=== PATIENT | female | born 1955 | race Caucasian/White ===

== ENCOUNTER 2019-05-31 15:08 | Inpatient (IN) | payer MEDICARE, MEDICAID ==
[~2019-05-31] VITALS: Ht 170.2 cm; Wt 59.0 kg
[~2019-05-31 15:08] MED LIST: AMIN30LI4 PO; FENT1PAT2 TD; FOLI1TAB94 PO; HYDR12.519 PO; LISI20TA61 PO; METH2.5T14 PO; MULT1TAB11 PO; OXYC10TA PO; SOLI10TA2 PO; VITA1TAB56 PO; [UNRECOGNIZED DRUG - CODE] SQ
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
[2019-05-31 15:34] LABS: BASOPHILS # (AUTO) 0.1 /CMM (0.0-0.2); BASOPHILS % (AUTO) 0.7 % (0.0-2.0); EOSINOPHILS % (AUTO) 2.2 % (0.0-6.0); HEMATOCRIT 43 % (33-45); HEMOGLOBIN 14.4 g/dL (11.5-14.8); LYMPHOCYTES # (AUTO) 2.3 /CMM (0.8-4.8); LYMPHOCYTES % (AUTO) 29.5 % (20.0-44.0); MEAN CORPUSCULAR HGB CONC 34 g/dl (31.0-36.0); MEAN CORPUSCULAR VOLUME 91 fL (82-100); MONOCYTES # (AUTO) 0.6 /CMM (0.1-1.30); MONOCYTES % (AUTO) 8.3 % (2.0-12.0); NEUTROPHILS # (AUTO) 4.6 /CMM (1.8-8.9); NEUTROPHILS % (AUTO) 59.3 % (43.0-81.0); PLATELET COUNT (AUTO) 282 /CMM (150-450); RED BLOOD CELL COUNT(AUTO) 4.67 MIL/uL (4.0-5.2); WHITE BLOOD COUNT (AUTO) 7.8 K/uL (4.3-11.0)
[2019-05-31 15:53] LABS: ALANINE AMINOTRANSFERASE 17 U/L (12-78); ALBUMIN 3.7 g/dL (3.4-5.0); ALCOHOL, BLOOD < 3 mg/dL (0-0); ALKALINE PHOSPHATASE 88 U/L (46-116); ASPARTATE AMINOTRANSFERASE 13 U/L (15-37); BILIRUBIN,DIRECT 0.1 mg/dL (0.0-0.2); BILIRUBIN,TOTAL 0.2 mg/dL (0.2-1.0); CALCIUM, SERUM 9.1 mg/dL (8.5-10.1); CARBON DIOXIDE 28 mmol/L (21-32); CHLORIDE 104 mmol/L (98-107); CREATININE 0.6 mg/dL (0.6-1.3); GLUCOSE 91 mg/dL (74-106); POTASSIUM 3.5 mmol/L (3.5-5.1); SALICYLATE 2.9 mg/dL (2.8-20.0); SODIUM SERUM 138 mmol/L (136-145); UREA NITROGEN, BLOOD 11 mg/dL (7-18)
[2019-05-31 15:54] LABS: ACETAMINOPHEN < 5 ug/ml (10-30)
[2019-05-31 16:04] LABS: APPEARANCE,URINE Clear (CLEAR); BILIRUBIN,URINE Negative (NEGATIVE); BLOOD, URINE Trace-intact Ery/uL (NEGATIVE); COLOR,URINE Yellow (YELLOW); KETONES,URINE Trace (NEGATIVE); LEUKOCYTE ESTERASE ,URINE Small (NEGATIVE); NITRITE, URINE Negative (NEGATIVE); PROTEIN,URINE Negative (NEGATIVE); UGLUCOSE Negative (NEGATIVE)
--- NOTE | 2019-05-31 16:23 | NUR ---
CALLED [facility] ASKED MARILU TO FAX A COPY OF MEDICATION RECORDS TO ER.
--- NOTE | 2019-05-31 16:32 | NUR ---
ROOM ASSIGN 211-A
--- NOTE | 2019-05-31 17:01 | NUR ---
REPORT GIVEN TO MONTEZ MELENDEZ.
[2019-05-31 17:28] LABS: BACTERIA,URINE Few /HPF (None Seen); MUCUS,URINE Moderate /LPF (None Seen); RBC,URINE 2-3/HPF /HPF (0-2); SQUAMOUS EPITHELIAL CELL,UR Moderate /HPF (None Seen); URINE AMORPHOUS URATE Few /HPF (None Seen)
[2019-05-31] MEDS ORDERED: NITROFURANTOIN/NITROFURAN MAC 100 MG CAPSULE PO STA (17:34)
[2019-05-31] MEDS ORDERED: NITROFURANTOIN/NITROFURAN MAC 100 MG CAPSULE ONE (17:37)
--- NOTE | 2019-05-31 17:56 | NUR ---
PATIENT TRANSFERRED TO ROOM 211-A, IN STABLE CONDITION. PATIENT TOOK MACROBID PO. AND TOLERATED WELL. ASKED [facility] TO FAX MED LIST, STILL HAVEN'T RECEIVED THE MED LIST. ENDORSED TO RANDI MELENDEZ.
[2019-05-31] MEDS ORDERED: BLOOD SUGAR DIAGNOSTIC 1 EACH STRIP IN ONE (18:00)
[2019-05-31] MEDS ORDERED: MAG HYDROX/AL HYDROX/SIMETH 30 ML UDC PO PRN (18:00)
[2019-05-31] MEDS ORDERED: MAGNESIUM HYDROXIDE 30 ML UDC PO PRN (18:00)
--- NOTE | 2019-05-31 18:00 | NUR ---
INVESTMENT BANKER NOTE: PATIENT ARRIVED TO [facility] GPS FROM ER VIA WHEELCHAIR WITH ER STAFF. PATIENT CAME FROM [facility] WITH DIAGNOSIS OF SCHIZOPHRENIA, MEDICAL HISTORY OF HYPERTENSION, PELVIC FRACTURE, AND R ANKLE FRACTURE. PATIENT ON A 5150 HOLD FOR DTO. UPON FACE TO FACE PATIENT REFUSED TO SIGN ADMISSION PAPERWORK, REFUSED TO HAVE PICTURE TAKEN AND REFUSED SKIN ASSESSMENT. PATIENT IS ALERT AND ORIENTED x1-2. NO ACUTE DISTRESS NOTED. VS TAKEN BP 147/97, P70 R18 02 SAT 100% DENIES ANY PAIN OR DISCOMFORT. DR. MOREL MADE AWARE OF ADMISSION. CONTRABAND TAKEN AND PUT IN LOCKER. WILL ENDORSSE TO NEXT SHIFT FOR COMPLETION OF ADMISSION. Addendum: 05/31/19 at 1852 by ROBERT COPE RN INVESTMENT BANKER NOTE: PATIENT REFUSED BLOOD SUGAR CHECK UPON DISCHARGE. PATIENT STATES "NO, I DON'T WANT IT!"
--- NOTE | 2019-05-31 18:13 | NUR ---
DR. MOREL MADE OF THE ADMISSION AND WITH ORDERS.
[2019-05-31 18:30] VITALS: BP 147/97
[2019-05-31 19:57] VITALS: BP 128/71
--- NOTE | 2019-05-31 21:00 | NUR ---
GPS RN NOTES: SPOKE WITH ONDINA FROM [facility]. PER ONDINA, [facility] IS A [facility] AND PATIENT HAS THE OPTION TO BE GIVEN MEDS THROUGH THEIR STAFF OR THEY TAKE MEDICATIONS ON THEIR OWN. WHILE PATIENT STAYED AT [facility] SHE OPTED TO TAKE THE MEDICATIONS INDEPENDENTLY WITHOUT THE STAFF'S HELP. SHE FURTHER SUGGESTED THAT WE INTERVIEW THE PATIENT FOR SHE KNOWS WHO HER DOCTOR IS AND WHAT SHE IS TAKING. THE PATIENT AT THIS TIME APPEARED TO BE EASILY AGITATED AND SCREAMS AT STAFF WHEN BEING INTERVIEW. ONDINA ALSO SUGGESTED TO CALL MARILU OR NAOMY AROUND 10 AM THE NEXT DAY FOR FURTHER INFORMATION.
[2019-06-01] MEDS: LORAZEPAM 0.5 MG TABLET PO PRN (03:36)
--- NOTE | 2019-06-01 03:37 | NUR ---
GPS-RN PATIENT IS REQUESTING FOR ATIVAN, AFTER OPENING ATIVAN PRN MED PT. REFUSED STATING IN A LOUD VOICE NO, "I DON'T NEED, IT". DESPITE OF EXPLANATION THE IMPORTANCE PT. STILL REFUSED.
[2019-06-01] MEDS ORDERED: TEMA15CA PO (08:55)
[2019-06-01] MEDS ORDERED: HALO5TAB PO (08:55)
[2019-06-01] MEDS ORDERED: CLON0.5T12 PO (08:55)
[2019-06-01] MEDS ORDERED: BENZ1TAB7 PO (08:55)
[2019-06-01] MEDS: CEPHALEXIN MONOHYDRATE 500 MG CAPSULE PO SCH ×2 (09:00→20:03)
--- NOTE | 2019-06-01 12:07 | NUR ---
Pt. is highly agitated, screaming, yelling, intrusive and with an angry mood. Refused for ativan po and not following direstion. Notified and ordered Zyprexa 5 mg IM and Ativan 1 mg IM.
[2019-06-01] MEDS ORDERED: LORAZEPAM INJ 2 MG/ML VIAL IM ONE (12:30)
[2019-06-01] MEDS ORDERED: OLANZAPINE 10 MG VIAL IM ONE (12:30)
--- NOTE | 2019-06-01 14:12 | NUR ---
NEERAJ contacted Jonelle nurse at [facility] Address: [address] [place] [id number] who stated she was not sure if pt will be accepted back and requested SW speak to the oracle database administrator Brinda [phone]. NEERAJ contacted Brinda and left a voicemail for callback.
--- NOTE | 2019-06-01 14:14 | NUR ---
SW contacted pts Public Guardian Chente Bradleyjhony [phone] and left a voicemail for callback.
--- NOTE | 2019-06-01 14:38 | NUR ---
INITIAL DISCHARGE PLAN: NEERAJ contacted nurse Jonelle at [facility] Address: [address] [place] [address] who stated she was not sure if pt will be accepted back and requested NEERAJ speak to the customer service administrator Brinda [phone]. NEERAJ contacted Brinda and left a voicemail for callback. Pt may need SNF placement. NEERAJ will help form a safe and proper discharge in collaboration with .
--- NOTE | 2019-06-01 15:00 | NUR ---
GROUP NOTE: SW encouraged pt to attend group discussing "discharge planning." Pt received IM on this present day due to aggressive behavior and was asleep. Pt not appropriate for group at this time.
[2019-06-01] MEDS: BENZTROPINE MESYLATE (1 MG) 1 MG TABLET PO SCH (16:36)
[2019-06-01] MEDS: DIVALPROEX SODIUM 250 MG TABLET.DR PO SCH (16:37)
--- NOTE | 2019-06-01 16:37 | NUR ---
RN NOTE: PATIENT REFUSED 1700 MEDICATIONS x3. RISK AND BENEFITS EXPLAINED. PATIENT SHOUTS "I DON'T TAKE ANY MEDICATION!"
[2019-06-01] MEDS ORDERED: HALOPERIDOL 5 MG TABLET PO SCH (17:00)
[2019-06-02] MEDS: TRIFLUOPERAZINE HCL 1 MG TABLET PO SCH (09:00)
[2019-06-02] MEDS: DIVALPROEX SODIUM 250 MG TABLET.DR PO SCH ×3 (09:00→17:00)
[2019-06-02] MEDS: CEPHALEXIN MONOHYDRATE 500 MG CAPSULE PO SCH ×2 (09:00→20:51)
[2019-06-02] MEDS: BENZTROPINE MESYLATE (1 MG) 1 MG TABLET PO SCH ×2 (09:00→17:00)
--- NOTE | 2019-06-02 09:09 | NUR ---
SW contacted [facility] Address: [address] [place] [address] and spoke with Whit, traffic safety administrator players assistant who stated that pts Public Guardian called her and stated that pt was not happy at that facility and that she was going to find another arrangement for her.
--- NOTE | 2019-06-02 09:19 | NUR ---
NEERAJ contacted [facility] Public Guardians [employer] and spoke to [place] Worker for [address] Crystal [phone] and requested Detain and Treat. Per Janet she will be faxing Detain and Treat to NEERAJ on this present day.
--- NOTE | 2019-06-02 09:28 | NUR ---
GPS NOTE PATIENT REFUSED MORNING VITAL SIGNS. PATIENT REFUSED 0900 MEDICATIONS OF CONGENTIN 1 MG, DEPAKOTE 250 MG, KEFLEX 500 MG, AND STELAZINE 2MG. EDUCATED PATIENT OF RISKS VS BENEFITS OF MEDICATION AND IMPORTANCE. PATIENT RAISED VOICE AND YELLED " IM NOT TAKING THOSE MEDICATIONS". WILL CONTINUE TO MONITOR.
[2019-06-02] MEDS ORDERED: diphenhydrAMINE HCL 50 MG/ML VIAL IM ONE (11:30)
[2019-06-02] MEDS ORDERED: HALOPERIDOL LACTATE INJ 5 MG/ML VIAL IM ONE (11:30)
[2019-06-02] MEDS ORDERED: LORAZEPAM INJ 2 MG/ML VIAL IM ONE (11:30)
--- NOTE | 2019-06-02 11:34 | NUR ---
GPS/RN PT IS YELLING, NOT REDIRECTABLE, THREATENS STAFF MEMBERS USING THE PROFANE LANGUAGE. ORDERS FROM DR MOREL RECEIVED AND CARRIED OUT
--- NOTE | 2019-06-02 11:53 | NUR ---
GPS RN NOTE PATIENT PACING BERMUDEZ, YELLING " FUCK YOU GUYS" TO THE STAFF, PATIENT BANGING ON NURSING STATION DOOR, AND VERBALLY ABUSIVE AT STAFF. CHARGE NURSE GIOVANNA, SPOKE WITH DR. MOREL. ORDERS FOR ATIVAN IM, BENADRYL IM, AND HALDOL LACTATE IM ONE TIME. ADMINISTERED MEDICATIONS AT 1152. WILL CONTINUE TO MONITOR.
--- NOTE | 2019-06-02 12:42 | NUR ---
GROUP NOTE: SW encouraged pt to attend group discussing "issues with current hospitalization." Pt with unpredictable behavior and easily agitated. Pt is unable to participate in group at this time due to lability and aggressive verbal behavior.
--- NOTE | 2019-06-02 13:12 | NUR ---
GPS RN NOTE PATIENT REFUSED DEPAKOTE AT 1300. EXPLAINED RISKS VS BENEFITS AND IMPORTANCE OF MEDICATION 3X, PATIENT CONTINUED TO REFUSE. WILL CONTINUE TO MONITOR.
[2019-06-02 16:00] VITALS: BP 117/65
[2019-06-02] MEDS: HALOPERIDOL 5 MG TABLET PO SCH (17:00)
--- NOTE | 2019-06-02 17:29 | NUR ---
GPS RN NOTE PATIENT REFUSED PM MEDICATIONS FOR 1700 CONGENTIN, DEPAKOTE, HALDOL. EXPLAINED RISKS VS BENEFITS. PATIENT RAISED VOICE AND YELLED " I DONT WANT THIS, STOP TRYING TO GIVE ME THIS MEDICATION, STOP IT. IM NOT TAKING ANY OF THAT SHIT". EXPLAINED IMPORTANCE OF MEDICATION, PATIENT CONTINUED TO REFUSE.
--- NOTE | 2019-06-02 19:18 | NUR ---
UP AMBULATING AROUND THE UNIT, STEADY GAIT. CALM AND QUIET. NO AGITATION NOTED.
--- NOTE | 2019-06-02 20:51 | NUR ---
Offered her cephalexin 500 mg cap due for 2100 tonight and still refusing.
--- NOTE | 2019-06-02 21:26 | NUR ---
Yelling at the nurse's station, requesting for diet coke and tea.
[2019-06-03] MEDS: DIVALPROEX SODIUM 250 MG TABLET.DR PO SCH ×3 (09:00→17:00)
[2019-06-03] MEDS: HALOPERIDOL 5 MG TABLET PO SCH ×2 (09:00→17:00)
[2019-06-03] MEDS: CEPHALEXIN MONOHYDRATE 500 MG CAPSULE PO SCH ×2 (09:00→20:35)
[2019-06-03] MEDS: BENZTROPINE MESYLATE (1 MG) 1 MG TABLET PO SCH ×2 (09:00→17:00)
--- NOTE | 2019-06-03 09:25 | NUR ---
RN NOTE: PT REFUSED ALL 0900 MEDICATIONS. EXPLAINED IMPORTANCE. CONTINUED TO REFUSE MULTIPLE TIMES.
[2019-06-03] MEDS: HALOPERIDOL LACTATE INJ 5 MG/ML VIAL IM PRN ×2 (10:04→17:35)
--- NOTE | 2019-06-03 10:10 | NUR ---
NORA NOTE: KENNY SANCHEZ GIVEN. Addendum: 06/03/19 at 1222 by JUHI BERNAL RN PATIENT REFUSED 1300 DEPMEJIA
[2019-06-03 16:00] VITALS: BP 124/71
--- NOTE | 2019-06-03 17:36 | NUR ---
RN NOTE: PT REFUSED 1700 PO MEDS. HALDOL 5M IM GIVEN IN LEFT DELTOID.
--- NOTE | 2019-06-03 20:35 | NUR ---
RN NOTES PATIENT REFUSED KEFLEX 500MG PO. EXPLAINED THE BENEFITS AND RISKS BUT PATIENT STILL REFUSED AND SCREAMED," WHY DO KEEP LETTING ME TAKE THE ANTIBIOTIC. I DON'T WANT IT. I'VE BEEN TELLING PEOPLE THAT." RETURNED ANTIBIOTIC TO [facility]
[2019-06-04] MEDS: HALOPERIDOL LACTATE INJ 5 MG/ML VIAL IM PRN ×2 (08:21→17:41)
[2019-06-04] MEDS: BENZTROPINE MESYLATE (1 MG) 1 MG TABLET PO SCH ×2 (08:23→17:00)
[2019-06-04] MEDS: HALOPERIDOL 5 MG TABLET PO SCH ×2 (08:24→17:00)
[2019-06-04] MEDS: CEPHALEXIN MONOHYDRATE 500 MG CAPSULE PO SCH ×2 (08:24→20:10)
[2019-06-04] MEDS: DIVALPROEX SODIUM 250 MG TABLET.DR PO SCH ×3 (08:24→17:00)
--- NOTE | 2019-06-04 08:25 | NUR ---
PATIENT REFUSED KEFLEX 500MG PO AND ALL PO AM MEDS. EXPLAINED THE BENEFITS AND RISKS BUT PATIENT STILL REFUSED. PRN HALDOL IM ADMINISTRATED DIRECTED
--- NOTE | 2019-06-04 17:39 | NUR ---
PATIENT REFUSED ALL 1700 MEDS, INCLUDING G HALDOL. EXPLAINED THE BENEFITS AND RISKS BUT PATIENT STILL REFUSED. PRN HALDOL IM ADMINISTRATED DIRECTED
[2019-06-04 19:51] VITALS: BP 149/74
[2019-06-04 19:56] VITALS: BP 149/74
--- NOTE | 2019-06-04 20:00 | NUR ---
RN NOTES: pt in the room, refusing medications, received haldol IM during day shift. pt isolate herself in the room, easily gets agitated when ask questions. unpredictable, with reports of aggressive behavior. pt is a/o x2, on ra respirations even and unlabored, denies any pain at this time. denies any si/hi. agrees for vs to be taken.refused skin assessment. safety precautions for fall initiated, side rails up x2 for pt's safety. will continue monitoring pt [id number] for safety and any changes in behavior.
[2019-06-05 08:00] VITALS: BP 142/70
[2019-06-05] MEDS: HALOPERIDOL 5 MG TABLET PO SCH ×2 (08:02→16:07)
[2019-06-05] MEDS: CEPHALEXIN MONOHYDRATE 500 MG CAPSULE PO SCH ×2 (08:02→20:16)
[2019-06-05] MEDS: BENZTROPINE MESYLATE (1 MG) 1 MG TABLET PO SCH ×2 (08:03→16:07)
[2019-06-05] MEDS: DIVALPROEX SODIUM 250 MG TABLET.DR PO SCH ×2 (08:03→12:12)
--- NOTE | 2019-06-05 10:10 | NUR ---
SW contacted pts Public Guardian Chente Bradelyjhony [phone] and left a voicemail for callback.
--- NOTE | 2019-06-05 11:00 | NUR ---
PUBLIC GUARDIAN: NEERAJ received a call from Public Guardian Chente Bradley [phone] who stated pt is unable to return to [facility] as pt does not wish to return and the facility does not want to take her back. Public Guardian stated that if psychiatrist is recommending locked SNF then SW is able to refer pt and requested SW fill out a request for approval placement/ transfer of conservatee form before pt is discharged. NEERAJ received form via fax.
--- NOTE | 2019-06-05 11:36 | NUR ---
NEERAJ FAXED SNF REFERRAL to Ryan high school admissions representative at [facility] Address: [address], [place] [address] for review.
--- NOTE | 2019-06-05 12:39 | NUR ---
RN NOTE: PT REFUSED DEPAKOTE PO.
--- NOTE | 2019-06-05 13:38 | NUR ---
SW received a call from Ryan, dental scheduling coordinator at [facility] Address: [address], [place] [address] stating pt has been accepted to the facility.
--- NOTE | 2019-06-05 14:15 | NUR ---
INDIVIDUAL COUNSELING: SW spoke with pt regarding her discharge plan to a group home facility. Pt refused and stated she was not going to go to a SNF. SW explained that pt was conserved and her discharge was up to her public guardian and also informed her that due to her not being compliant with medication and treatment she could not live in a board and care or independent living and needed to be in a SNF to be able to receive the care she needs. Pt understood and asked when she will be discharged and to what SNF. SW informed her that her discharge will be decided by her psychiatrist and that she has been accepted to [facility].
[2019-06-05] MEDS ORDERED: HALOPERIDOL DECANOATE IM 100 MG/ML AMPUL IM ONE (16:00)
--- NOTE | 2019-06-05 19:35 | NUR ---
CONTACTED RX X3 DUE TO HALDOL LONG ACTING NOT AVAILABLE IN OMNICELL. HALDOL ARRIVED LATE. FOLLOWING RN WILL ADMINISTER
[2019-06-05 19:43] VITALS: BP 147/88
[2019-06-05] MEDS: TEMAZEPAM 7.5 MG CAPSULE PO PRN (21:26)
--- NOTE | 2019-06-05 21:30 | NUR ---
RN NOTES: PT REQUESTING FOR SLEEPING AID. PT WAS ADMINISTERED RESTORIL 7.5MG PO. WILL CONTINUE TO MONITOR.
--- NOTE | 2019-06-05 22:23 | NUR ---
NORA NOTES: PT COMPLIANT WITH HALDOL IM 100MG SHOT AND WAS ADMINISTERED ON L BUTTOCKS. Addendum: 06/05/19 at 2301 by MIKAELA MOORE RN buttock*
[2019-06-05] MEDS: LORAZEPAM 0.5 MG TABLET PO PRN (23:23)
[2019-06-06] MEDS: ACETAMINOPHEN 325 MG TABLET PO PRN ×3 (03:49→22:05)
--- NOTE | 2019-06-06 03:51 | NUR ---
RN NOTES: PT COMPLAINING OF TOOTHACHE AND CANNOT SLEEP. PT WAS ADMINISTERED TYLENOL 650MG PO. WILL CONTINUE TO MONITOR.
[2019-06-06 08:00] VITALS: BP 161/71
--- NOTE | 2019-06-06 08:37 | NUR ---
NEERAJ FAXED request for approval placement/ transfer of conservatee form to Public Guardian Chente Bradley [phone] .
[2019-06-06] MEDS: CEPHALEXIN MONOHYDRATE 500 MG CAPSULE PO SCH ×2 (08:53→21:00)
[2019-06-06] MEDS: BENZTROPINE MESYLATE (1 MG) 1 MG TABLET PO SCH ×2 (08:53→16:28)
[2019-06-06] MEDS: clonazePAM 0.5 MG TABLET PO PRN ×3 (08:53→19:24)
[2019-06-06] MEDS: HALOPERIDOL 5 MG TABLET PO SCH ×2 (08:53→16:28)
--- NOTE | 2019-06-06 08:55 | NUR ---
RN NOTE: PATIENT ANXIOUS, PRN KLONOPIN GIVEN.
--- NOTE | 2019-06-06 09:55 | NUR ---
RN NOTE: PATIENT CURSED AT DR FREDERICK. SPOKE TO PATIENT AND PATIENT CALMED DOWN. INFORMED DR MOREL WITH NNO. WILL CONTINUE TO MONITOR PATIENT PER GPS PROTOCOL.
--- NOTE | 2019-06-06 10:06 | NUR ---
RN NOTE: INFORMED DR COWART ABOUT PATIENT'S ELEVATED BP. PATIENT HAS NO MEDS FOR HTN. HYDRALAZINE 20MG QD ORDERED.
[2019-06-06] MEDS: LISINOPRIL (20MG) 20 MG TABLET PO SCH (10:50)
--- NOTE | 2019-06-06 11:09 | NUR ---
INDIVIDUAL MEETING: SW met with pt on this present day to discuss her discharge plan. SW informed her that she will be discharged on 06/08/19 to [facility]. Pt became agitated and began yelling stating she was not going to be discharged to a SNF and that she wanted to return to the [facility]. SW explained that she could not return due to her behavior and pt began yelling and became verbally aggressive stating that the facility lied and that she has never had any behavior issues. SW then explained that due to her being LPS conserved her Public Guardian has already agreed with placement that psychiatrist has recommended. Pt was unable to calm down and refused placement stating that she was not going to go and that she rather be homeless. SW attempted to provide crisis intervention but pt was uncooperative and verbally aggressive in tone. Pt then stated that SW could have her "blood money and shove it up her ass."
--- NOTE | 2019-06-06 11:52 | NUR ---
NORA NOTE: PATIENT COMPLAINING OF PAIN ON HER TOOTH. PRN TYLENOL GIVEN. WILL RE-ASSESS PAIN LEVELS. Addendum: 06/06/19 at 1210 by JUHI BERNAL RN PATIENT STATED SHE HAS RIGHT UPPER TOOTH PAIN ALONG WITH PAIN TO HER RIGHT EAR. VS TAKEN. WILL CONTACT DR COWART FOR FURTHER ORDERS. Addendum: 06/06/19 at 1223 by JUHI BERNAL RN CONTACTED DR. COWART, AWAITING CALL BACK
[2019-06-06 12:11] VITALS: BP 144/82
--- NOTE | 2019-06-06 15:16 | NUR ---
Group Note: SW encouraged pt to attend group on 06/06/19 at 1pm discussing discharge planning. Pt refused to attend and stated that she has been trying to talk to her SW all day and knows that she is leaving on . Pt stated that she does not want to be placed in a locked facility and that she will just leave if she is sent to one. SW stated that the placement is necessary for further stabilization and that she should speak to her SW and MD regarding the reasoning behind this placement. Pt was not appropriate for group therapy due to unpredictable behavior and due to being easily agitated.
--- NOTE | 2019-06-06 15:23 | NUR ---
RN NOTE: PATIENT C/O ANXIETY. PRN ATIVAN GIVEN
--- NOTE | 2019-06-06 15:30 | NUR ---
PUBLIC GUARDIAN: SW received a call from Public Guardian Chente Bradley [phone] stating that she has received the Request for Approval of Placement Transfer of Consertavee Form and has approved it. SW received faxed copied and placed it in pts chart.
[2019-06-06 15:51] VITALS: BP 123/67
[2019-06-06] MEDS: IBUPROFEN 400 MG TABLET PO PRN (16:29)
--- NOTE | 2019-06-06 16:30 | NUR ---
RN NOTE: PATIENT HAS PAIN IN RIGHT TOOTH. PRN IBUPROFEN GIVEN.
--- NOTE | 2019-06-06 19:00 | NUR ---
RN NOTE RECEIVED PT IN STABLE CONDITION A/O X2 CURRENTLY STANDING IN DOORWAY. NO S/S OF DISTRESS, NO C/O PAIN OR N/V. NO SIGNS OF SI OR HI. ALL CURRENT NEEDS ATTENDED TO. WILL CONT. TO MONITOR PT'S BEHAVIOR CLOSELY.
[2019-06-06] MEDS: TEMAZEPAM 7.5 MG CAPSULE PO PRN (20:59)
--- NOTE | 2019-06-06 22:05 | NUR ---
RN NOTE PRN TYLENOL 650 MG TAB GIVEN PO FOR PT C/O TOOTH PAIN 10/09, WILL CONT. TO MONITOR.
[2019-06-07] MEDS: IBUPROFEN 400 MG TABLET PO PRN ×2 (02:01→10:16)
--- NOTE | 2019-06-07 02:01 | NUR ---
RN NOTE PRN IBUPROFEN 400 MG PO TAB GIVEN FOR PT C/O OF TOOTHACHE PAIN 10/09, WILL CONT. TO MONITOR.
[2019-06-07] MEDS: CEPHALEXIN MONOHYDRATE 500 MG CAPSULE PO SCH (08:09)
[2019-06-07] MEDS: BENZTROPINE MESYLATE (1 MG) 1 MG TABLET PO SCH (08:09)
[2019-06-07] MEDS: ACETAMINOPHEN 325 MG TABLET PO PRN (08:09)
[2019-06-07] MEDS: HALOPERIDOL 5 MG TABLET PO SCH (08:09)
[2019-06-07] MEDS: LISINOPRIL (20MG) 20 MG TABLET PO SCH (08:14)
[2019-06-07 08:18] VITALS: BP 145/84
--- NOTE | 2019-06-07 09:06 | NUR ---
INDIVIDUAL MEETING: SW met with pt on this present day to discuss pts discharge plan, pt continues to refuse locked SNF placement and has poor insight into her mental illness. Pt agreed to discharge to a non-locked SNF in [facility] and stated that she will discharge willingly.
[2019-06-07] MEDS: clonazePAM 0.5 MG TABLET PO PRN (09:13)
--- NOTE | 2019-06-07 09:13 | NUR ---
NEERAJ FAXED SNF REFERRAL to Raad improvement coordinator at [facility] Address: [address] [place] [address] for review.
--- NOTE | 2019-06-07 09:17 | NUR ---
PUBLIC GUARDIAN: NEERAJ contacted Public Guardian Chente Grewalrachelle [phone] and left a voicemail informing her pt continues to refuse being discharged to a locked SNF and agreed to be discharged to a non-locked SNF in [place]. NEERAJ informed her that a referral has been sent an is awaiting approval for discharge. NEERAJ stated that she would update transfer of convervatee form once placement and discharge have been confirmed.
--- NOTE | 2019-06-07 10:31 | NUR ---
PUBLIC GUARDIAN: SW received a call from Public Guardian Chente Bradley [phone] who verbally approved SNF transfer to [facility]. SW stated that she is waiting for confirmation from SNF that pt has been accepted.
--- NOTE | 2019-06-07 10:55 | NUR ---
PUBLIC GUARDIAN NEERAJ FAXED request for approval placement/ transfer of conservatee form to Public Guardian Chente Bradley [phone] .
--- NOTE | 2019-06-07 11:00 | NUR ---
INDIVIDUAL MEETING: NEERAJ contacted Jonelle, nurse at [facility] Address: [address] [place] [phone] who spoke with pt to inform her she cannot return the the facility due to her aggressive behavior.
--- NOTE | 2019-06-07 11:02 | NUR ---
SNF REFERRAL: NEERAJ received a call from Raad field service coordinator at [facility] Address: [address] [place] [address] stating pt has been accepted to the facility. NEERAJ informed him pt will be discharged on this present day.
--- NOTE | 2019-06-07 11:04 | NUR ---
PUBLIC GUARDIAN: NEERAJ received approval for placement/ transfer of conservatee form via fax from Public Guardian Chente Bradley [phone]. SW placed form in pts chart.
--- NOTE | 2019-06-07 11:06 | NUR ---
DISCHARGE NOTE: Pt will be discharging at 3:30pm via [facility] to [facility] ([facility] [address] [facility] [address] . Public Guardian Chente Bradley [phone] has been notified and agrees with discharge plan. Pts mood is anxious and paranoid with congruent affect. Pt denied visual/auditory hallucinations and denied suicidal/homicidal ideation. Pt will be under the care of Psychiatrist: Dr. Nella Newton [address] [id number] [phone] and Revenue Inspector: Dr. Ayan Najera [address] [id number] . The multidisciplinary exit care form was done, printed, signed, and given to the patient.
--- NOTE | 2019-06-07 11:33 | NUR ---
Handoff to Nurse, NORA Sherman, with [facility]. Merlin Toussaint RN
--- NOTE | 2019-06-07 13:47 | NUR ---
Patient sent to [facility] with assistance of EMT crew. Patient took all belongings. Patient ambulates independently without assistance. Patient thankful to staff for her care. Merlin Toussaint RN
== END 2019-06-07 13:45 | DRG 885 ==
LOC: ER 15:16 → GPS 16:50
PROVIDERS: ADMIT Psychiatry & Neurology Psychiatry; ATTEND Nurse Practitioner Acute Care
DX: F20.0 Paranoid schizophrenia (principal); N39.0 Urinary tract infection, site not specified; E78.5 Hyperlipidemia, unspecified; I10 Essential (primary) hypertension; F32.9 Major depressive disorder, single episode, unspecified; G47.00 Insomnia, unspecified; F29 Unspecified psychosis not due to a substance or known physiological condition; B96.89 Other specified bacterial agents as the cause of diseases classified elsewhere
CPT/HCPCS: 36415; 80048-TC; 80076-TC; 80305; 81000-TC; 85025-TC; 87081-TC; 87086-TC; G0480; J1200; J1630; J1631; J2060; J3490

== ENCOUNTER 2022-06-30 15:02 | Inpatient (IN) | payer MEDICARE, OTHER ==
[~2022-06-30] VITALS: Ht 165.1 cm; Wt 72.6 kg
[~2022-06-30 15:02] MED LIST changes: -AMIN30LI4 PO; +BENZ1TAB7 PO; +CLON0.5T4 PO; -FENT1PAT2 TD; -FOLI1TAB94 PO; +HALO5TAB PO; -HYDR12.519 PO; -LISI20TA61 PO; -METH2.5T14 PO; -MULT1TAB11 PO; -OXYC10TA PO; -SOLI10TA2 PO; +TEMA15CA PO; -VITA1TAB56 PO; -[UNRECOGNIZED DRUG - CODE] SQ
--- NOTE | 2022-06-30 15:05 | NUR ---
ON 5150 HOLD FOR DANGER TO OTHERS, PATIENT HAS BEEN REPORTED TO BE BELLIGERENT AND THREATENING TO HURT OTHER PEOPLE.
--- NOTE | 2022-06-30 15:08 | NUR ---
DR RAAUJO AT BEDSIDE
[2022-06-30] MEDS ORDERED: HALOPERIDOL LACTATE INJ 5 MG/ML VIAL ONE (15:40)
[2022-06-30] MEDS ORDERED: diphenhydrAMINE HCL 50 MG/ML VIAL ONE (15:40)
[2022-06-30] MEDS ORDERED: LORAZEPAM INJ 2 MG/ML VIAL ONE (15:40)
--- NOTE | 2022-06-30 15:55 | NUR ---
RAPID COVID SWAB DONE AND SENT TO LAB
[2022-06-30] MEDS ORDERED: HALOPERIDOL LACTATE INJ 5 MG/ML VIAL IM ONE (16:00)
[2022-06-30] MEDS ORDERED: LORAZEPAM INJ 2 MG/ML VIAL IM ONE (16:00)
[2022-06-30] MEDS ORDERED: diphenhydrAMINE HCL 50 MG/ML VIAL IM ONE (16:00)
--- NOTE | 2022-06-30 16:00 | NUR ---
URINE SAMPLE COLLECTED AND SENT TO LAB
--- NOTE | 2022-06-30 16:02 | NUR ---
MOVE SHEET SUBMITTED.
[2022-06-30 16:26] LABS: BASOPHILS % (AUTO) 0.1 % (0.0-2.0); EOSINOPHILS % (AUTO) 2.7 % (0.0-6.0); HEMATOCRIT 41 % (33-45); HEMOGLOBIN 13.6 g/dL (11.5-14.8); LYMPHOCYTES # (AUTO) 3.3 K/uL (0.8-4.8); LYMPHOCYTES % (AUTO) 25.9 % (20.0-44.0); MEAN CORPUSCULAR HGB CONC 34 g/dl (31.0-36.0); MEAN CORPUSCULAR VOLUME 86 fL (82-100); MONOCYTES % (AUTO) 7.6 % (2.0-12.0); NEUTROPHILS # (AUTO) 8.1 K/uL (1.8-8.9); NEUTROPHILS % (AUTO) 63.7 % (43.0-81.0); PLATELET COUNT (AUTO) 292 K/uL (150-450); RED BLOOD CELL COUNT(AUTO) 4.73 MIL/uL (4.0-5.2); WHITE BLOOD COUNT (AUTO) 12.7 K/uL (4.3-11.0)
[2022-06-30 16:29] LABS: BILIRUBIN,URINE NEGATIVE (NEGATIVE); COLOR,URINE YELLOW (YELLOW); LEUKOCYTE ESTERASE ,URINE NEGATIVE (NEGATIVE); NITRITE, URINE NEGATIVE (NEGATIVE); PROTEIN,URINE NEGATIVE (NEGATIVE); UGLUCOSE NEGATIVE (NEGATIVE); UROBILINOGEN,URINE 0.2 EU/dL (0.2)
[2022-06-30 16:37] LABS: CALCIUM, SERUM 9.2 mg/dL (8.5-10.1); CARBON DIOXIDE 27 mmol/L (21-32); CHLORIDE 102 mmol/L (98-107); CREATININE 0.6 mg/dL (0.6-1.3); GLUCOSE 92 mg/dL (74-106); SODIUM SERUM 137 mmol/L (136-145); UREA NITROGEN, BLOOD 16 mg/dL (7-18)
[2022-06-30 16:40] LABS: WBC,URINE 0-2 /HPF (0-3)
[2022-06-30 16:41] LABS: BACTERIA,URINE None seen /HPF (None Seen); SQUAMOUS EPITHELIAL CELL,UR Few /HPF (None Seen)
[2022-06-30 16:44] LABS: ALANINE AMINOTRANSFERASE 27 U/L (12-78); ALBUMIN 3.5 g/dL (3.4-5.0); ALCOHOL, BLOOD < 3 mg/dL (0-0); ALKALINE PHOSPHATASE 108 U/L (46-116); ASPARTATE AMINOTRANSFERASE 13 U/L (15-37); BILIRUBIN,DIRECT 0.1 mg/dL (0.0-0.2); BILIRUBIN,TOTAL 0.4 mg/dL (0.2-1.0); TOTAL PROTEIN, SERUM 7.6 g/dL (6.4-8.2)
[2022-06-30 16:48] LABS: ACETAMINOPHEN 0 ug/ml (10-30)
[2022-06-30] MEDS ORDERED: CLON1TAB12 PO (16:54)
--- NOTE | 2022-06-30 18:51 | NUR ---
REPORT GIVEN TO JEANNE MELENDEZ FOR ALEX
[2022-06-30 19:15] VITALS: BP 153/93
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
[2022-06-30] MEDS ORDERED: BLOOD SUGAR DIAGNOSTIC 1 EACH STRIP IN ONE (20:00)
[2022-06-30] MEDS ORDERED: MAG HYDROX/AL HYDROX/SIMETH 30 ML UDC PO PRN (20:00)
[2022-06-30] MEDS ORDERED: ACETAMINOPHEN 325 MG TABLET PO PRN (20:00)
[2022-06-30] MEDS ORDERED: MAGNESIUM HYDROXIDE 30 ML UDC PO PRN (20:00)
[2022-06-30] MEDS ORDERED: ZOLPIDEM TARTRATE 5 MG TABLET PO PRN ×2 (20:00→22:00)
[2022-06-30 20:24] VITALS: BP 151/98
--- NOTE | 2022-07-01 06:50 | NUR ---
RN NOTE PATIENT REFUSED AM BLOOD DRAW X3. PATIENT IS VERY UNCOOPERATIVE AND BECAME AGITATED. WILL ENDORSE TO AM SHIFT FOR CONTINUITY OF CARE.
--- NOTE | 2022-07-01 08:24 | NUR ---
WOUND CARE CONSULT: PT SLEEPING AT THIS TIME. PT WAS PREVIOUSLY AGITATED PER STAFF. THICKENED TOENAIL NOTED IN ADMISSION PHOTO. WILL SEE PRN.
--- NOTE | 2022-07-01 08:35 | NUR ---
RN-CO: DR OTONIEL MORALES RN WENT TO ASSESS THE PATIENT. SHE WAS SELECTIVELY MUTE , THEN AFTERWARDS SHE YELLED AT THE DOCTOR AND WAS AGGRESSIVE WITH INTENSE EYE CONTACT AND PRESSURED SPEECH. REFUSED PO ATIVAN WHEN OFFERED.
--- NOTE | 2022-07-01 08:38 | NUR ---
RN-CO: DR FREDERICK ORDERED ZYPREXA 10 MG IM STAT FOR AGGRESSIVE BEHAVIOR. NOTED AND CARRIED OUT.
[2022-07-01] MEDS ORDERED: OLANZAPINE 10 MG VIAL IM ONE ×2 (09:00→19:30)
--- NOTE | 2022-07-01 09:10 | NUR ---
NURSE NOTE: PT IS LOUD, AGITATED, UNCOOPERATIVE TO CARE, ANGRY, SCREAMING/YELLING AND ACTING BELLIGERENT TOWARDS STAFF. THREATENED DR FREDERICK. DR FREDERICK ORDERED ZYPREXA 10 MG IM. ZYPREXA ADMINISTERED TO L BUTTOCKS ORDERED. PT RM WELL. WILL CONT TO MONITOR. Addendum: 07/01/22 at 1241 by LEANDRA TONEY RN ADDENDUM: PT REFUSE VS AT THIS TIME. RR AT 16. WILL CONT TO MONITOR.
--- NOTE | 2022-07-01 09:45 | NUR ---
NURSE NOTE: PT CALM. SLEEPING IN BED. ZYPREXA EFFECTIVE AT THIS TIME. WILL CONT TO MONITOR.
--- NOTE | 2022-07-01 09:57 | NUR ---
NEERAJ Initial Discharge Plan: Patient currently resides at [address] [place] [address]; ([phone]). Unsure if pt will return back home. Pt was uncooperative with this sign writer letterer or painter. NEERAJ will contact ex- to gather further information. NEERAJ will work with the MD, family, and treatment team to help coordinate appropriate discharge.
--- NOTE | 2022-07-01 09:57 | NUR ---
NEERAJ Clinical Note: Pt placed on a 5150 hold for danger to others. Pt was aggressive and has been yelling and screaming at home. She has been making threatening comments. Patient currently resides at [address] [place] [address]; ([phone]). Unsure if pt will return back home. Pt was uncooperative with this screen writer. SW will contact ex- to gather further information.
--- NOTE | 2022-07-01 09:58 | NUR ---
Treatment Plan: Pt unable to sign treatment plan due to pt being verbally aggressive and yelling.
--- NOTE | 2022-07-01 10:02 | NUR ---
Public Guardian: NEERAJ contacted public guardian office ([phone]) and reported that conservatorship was terminated 02/14/2020.
--- NOTE | 2022-07-01 10:32 | NUR ---
NEERAJ FAMILY CONTACT: NEERAJ contacted pt's ex- Harjit ([phone]) to gather collateral. He stated that he will contact this web content writer back because he was busy with his dialysis treatment. He did report to this web content writer that pt cannot come back. He stated that pt has been living at his place and is not welcomed back. He stated he will contact this web content writer to discuss further.
--- NOTE | 2022-07-01 11:43 | NUR ---
NEERAJ FAMILY CONTACT: NEERAJ contacted pt's ex- Harjit ([phone]) and discussed treatment/discharge plan. He stated pt was living with him temporarily and does not want her back to her house. He stated that she does have family but family has no interest in her. He reported that she has been in and out of hospitals. NEERAJ will discuss with pt what the best plan would be.
[2022-07-01] MEDS: DIVALPROEX SODIUM 250 MG TABLET.DR PO SCH ×3 (13:00→17:00)
--- NOTE | 2022-07-01 14:11 | NUR ---
NURSE NOTE: PT REFUSED 1300 MED AND BLOOD DRAW. BEING BELLIGERENT AND YELLING AT STAFF, "GET OUT OF HERE!" WILL CONT TO MONITOR.
--- NOTE | 2022-07-01 14:19 | NUR ---
RN-CO: PT REFUSED ALL LAB WORKS. SHE YELLED AT THE MEDICAL OFFICE ASSISTANT INSTRUCTOR.
--- NOTE | 2022-07-01 14:42 | NUR ---
RN-CO: Ex stated that pt doesn't take any medications aside from Ativan.
[2022-07-01 16:00] VITALS: BP 120/68
[2022-07-01] MEDS: HALOPERIDOL 5 MG TABLET PO SCH (17:00)
[2022-07-01] MEDS: BENZTROPINE MESYLATE (1 MG) 1 MG TABLET PO SCH (17:00)
--- NOTE | 2022-07-01 18:30 | NUR ---
NURSE NOTE: PT REFUSED ALL MEDS. CONT TO BE AGGRESSIVE TOWARDS STAFF. WILL CONT TO MONITOR.
[2022-07-01] MEDS ORDERED: LORAZEPAM INJ 2 MG/ML VIAL IM ONE (19:30)
--- NOTE | 2022-07-01 19:55 | NUR ---
NURSE NOTE: PT AGGRESSIVE TOWARDS STAFF. LOUD, UNCOOPERATIVE. YELLING DEROGATORY TERMS AT STAFF. DR FREDERICK NOTIFIED AT 1926. ORDERED ZYPREXA 10MG IM AND ATIVAN 1MG IM X1 NOW. PT INFORMED THAT SHE WAS GETTING A SHOT AND AGREED TO IT. BOTH SHOTS GIVEN TO PT TO L BUTTOCKS PER PT. PT RM WELL. WILL CONT TO MONITOR. REFUSED VS. RR 16.
--- NOTE | 2022-07-01 20:55 | NUR ---
NURSE NOTE: PT CALM, SLEEPING AT THIS TIME. ZYPREXA AND ATIVAN IM EFFECTIVE AT THIS TIME. WILL CONT TO MONITOR. RR-18.
[2022-07-02] MEDS: HALOPERIDOL 5 MG TABLET PO SCH ×2 (09:00→17:00)
[2022-07-02] MEDS: DIVALPROEX SODIUM 250 MG TABLET.DR PO SCH ×3 (09:00→17:00)
[2022-07-02] MEDS: BENZTROPINE MESYLATE (1 MG) 1 MG TABLET PO SCH ×2 (09:00→17:00)
--- NOTE | 2022-07-02 10:33 | NUR ---
Pt. is highly agitated, aggressive, screaming, yelling, verbally abusive and threatening staffs. Dr. Bentley i the unit and ordered Haldol 5 mg IM, Cogentin 1 mg IM and Ativan 1 mg IM. Addendum: 07/02/22 at 1347 by ANGELA BARR RN Harjit made aware of the incident
[2022-07-02] MEDS ORDERED: BENZTROPINE MESYLATE (2MG/2ML) 2 MG/2 ML AMPUL IM ONE (11:00)
[2022-07-02] MEDS ORDERED: LORAZEPAM INJ 2 MG/ML VIAL IM ONE (11:00)
[2022-07-02] MEDS ORDERED: HALOPERIDOL LACTATE INJ 5 MG/ML VIAL IM ONE (11:00)
--- NOTE | 2022-07-02 13:51 | NUR ---
Pt. is still refusing med due for 1300 and said "I don't want it". Was explained on the importance and offered 3x.
--- NOTE | 2022-07-02 14:07 | NUR ---
[facility]ise [facility] is scheduled tomorrow at 9:30AM (Wednesday07/03/22). Dr. Bentley made aware.
--- NOTE | 2022-07-02 15:48 | NUR ---
Pt. ripped the Reise petition form and the 14 day hold. Pt. is screaming and irritable.
--- NOTE | 2022-07-02 17:39 | NUR ---
Pt. refused Haldol, Depakote and Cogentin po due for 0 and said "I don't want it". Was explained on the importance and offered 3x.
--- NOTE | 2022-07-02 19:30 | NUR ---
GPS RN NOTE, RECEIVED PATIENT AWAKE AND IN BED, NO S/S OR COMPLAINTS OF PAIN AT THIS TIME. PATIENT IS DISPLAYING NO S/S OF APPARENT DISTRESS AT THIS TIME. PATIENT BREATHING IS UNLABORED WITH EQUAL RISE AND FALL OF THE CHEST. PATIENT IS ALERT AND ORIENTED X 2 ON ROOM AIR. PATIENT IS REFUSING VITAL SIGNS. PATIENT IS REFUSING MEDICATIONS, DEMANDING, ENTITLED, HAS POOR BOUNDARIES, NEEDS LIMIT SETTING, POLITE AT TIMES, ABLE TO BE REDIRECTED, AND COOPERATIVE AT TIMES. PATIENT DENIES SUICIDAL AND HOMICIDAL IDEATIONS AT THIS TIME. PATIENT ASSISTED WITH TURNING AND REPOSITIONING Q2HR AND PRN FOR COMFORT AND CIRCULATION. PATIENT HAS NO NEEDS AT THIS TIME. PATIENT EDUCATED ON THE USE OF THE CALL FELDMAN. PATIENT BED SIDE RAILS UP X 2 FOR SAFETY. PATIENT BED IS LOCKED, LOW, WITH BED ALARM ON. WILL CONTINUE TO MONITOR THIS PATIENT Q15 MINUTES WITH THE HELP OF STAFF TO MAINTAIN SAFETY.
[2022-07-03] MEDS ORDERED: FLUR15CA14 PO (05:31)
[2022-07-03] MEDS: BENZTROPINE MESYLATE (1 MG) 1 MG TABLET PO SCH ×2 (08:36→16:25)
[2022-07-03] MEDS: DIVALPROEX SODIUM 250 MG TABLET.DR PO SCH ×3 (08:36→16:24)
[2022-07-03] MEDS: HALOPERIDOL 5 MG TABLET PO SCH ×2 (08:36→16:25)
[2022-07-03] MEDS ORDERED: HALOPERIDOL LACTATE INJ 5 MG/ML VIAL IM PRN (10:00)
[2022-07-03] MEDS ORDERED: diphenhydrAMINE HCL 50 MG/ML VIAL IM PRN (10:00)
[2022-07-03] MEDS: LORAZEPAM 0.5 MG TABLET PO PRN (17:10)
--- NOTE | 2022-07-03 17:11 | NUR ---
RN-NOTES NOTED PATIENT AGITATED IN HER ROOM SCREAMING AND YELLING USING FOUL LANGUAGE, ATIVAN 1MG P.O GIVEN PRN ORDER. WILL CONT. MONITORING FOR SAFETY AND BEHAVIOR.
--- NOTE | 2022-07-03 18:16 | NUR ---
RN-NOTES PATIENT LYING IN BED AWAKE,A/O X2, CALM , GUARDED,NO ACUTE DISTRESS NOTED. NOTED PATIENT WITH NEEDY AND DEMANDING, EASILY ANGRY AND VERBALLY ABUSIVE TO THE STAFF USING FOUL LANGUAGES,UNCOOPERATIVE WITH CARE. COMPLIANT WITH MEDICATIONS. AMBULATORY STEADY GAIT.ALL NEEDS ATTENDED AND ANTICIPATED. WILL CONT. MONITORING FOR SAFETY AND BEHAVIOR.WILL ENDORSE TO INCOMING NURSE FOR CONTINUITY OF CARE
--- NOTE | 2022-07-03 19:30 | NUR ---
GPS RN NOTE, RECEIVED PATIENT AWAKE AND IN BED, NO S/S OR COMPLAINTS OF PAIN AT THIS TIME. PATIENT IS DISPLAYING NO S/S OF APPARENT DISTRESS AT THIS TIME. PATIENT BREATHING IS UNLABORED WITH EQUAL RISE AND FALL OF THE CHEST. PATIENT IS ALERT AND ORIENTED X 2 ON ROOM AIR. PATIENT IS REFUSING VITAL SIGNS. PATIENT IS COMPLIANT WITH MEDICATIONS, DEMANDING, ENTITLED, HAS POOR BOUNDARIES, NEEDS LIMIT SETTING, POLITE AT TIMES, ABLE TO BE REDIRECTED, AND COOPERATIVE AT TIMES. PATIENT DENIES SUICIDAL AND HOMICIDAL IDEATIONS AT THIS TIME. PATIENT ASSISTED WITH TURNING AND REPOSITIONING Q2HR AND PRN FOR COMFORT AND CIRCULATION. PATIENT HAS NO NEEDS AT THIS TIME. PATIENT EDUCATED ON THE USE OF THE CALL FELDMAN. PATIENT BED SIDE RAILS UP X 2 FOR SAFETY. PATIENT BED IS LOCKED, LOW, WITH BED ALARM ON. WILL CONTINUE TO MONITOR THIS PATIENT Q15 MINUTES WITH THE HELP OF STAFF TO MAINTAIN SAFETY.
[2022-07-04] MEDS: LORAZEPAM 0.5 MG TABLET PO PRN ×4 (01:09→23:41)
--- NOTE | 2022-07-04 01:09 | NUR ---
GPS RN NOTE, PATIENT HAS A COMPLAINT OF FEELING ANXIOUS AND IS REQUESTING ATIVAN AT THIS TIME. GAVE ATIVAN 1MG PO Q6HR PRN ORDERED. WILL REASSESS FOR ANXIETY AND I WILL CONTINUE TO MONITOR THIS PATIENT WITH THE HELP OF STAFF.
[2022-07-04] MEDS: BENZTROPINE MESYLATE (1 MG) 1 MG TABLET PO SCH ×2 (08:12→16:09)
[2022-07-04] MEDS: HALOPERIDOL 5 MG TABLET PO SCH ×2 (08:12→16:09)
[2022-07-04] MEDS: DIVALPROEX SODIUM 250 MG TABLET.DR PO SCH ×3 (08:12→16:09)
--- NOTE | 2022-07-04 13:16 | NUR ---
RN-NOTES PATIENT SCREAMING AND YELLING REQUESTING ATIVAN , ATIVAN 1 MG P.O GIVEN PRN ORDER. WILL CONT. MONITORING FOR SAFETY AND BEHAVIOR.
--- NOTE | 2022-07-04 14:20 | NUR ---
RN-NOTES PATIENT LYING IN BED AWAKE,A/O X3,CALM NO ACUTE DISTRESS NOTED.
[2022-07-04 16:00] VITALS: BP 138/78
--- NOTE | 2022-07-04 18:37 | NUR ---
RN-NOTES PATIENT LYING IN BED AWAKE,A/O X2, CALM , GUARDED,NO ACUTE DISTRESS NOTED. NOTED PATIENT WITH NEEDY AND DEMANDING, EASILY ANGRY AND VERBALLY ABUSIVE TO THE STAFF USING FOUL LANGUAGES,UNCOOPERATIVE WITH CARE.PRN MEDICATION GIVEN. COMPLIANT WITH MEDICATIONS. AMBULATORY STEADY GAIT.ALL NEEDS ATTENDED AND ANTICIPATED. WILL CONT. MONITORING FOR SAFETY AND BEHAVIOR.WILL ENDORSE TO INCOMING NURSE FOR CONTINUITY OF CARE
[2022-07-04 20:00] VITALS: BP 147/62
[2022-07-05] MEDS: BENZTROPINE MESYLATE (1 MG) 1 MG TABLET PO SCH ×2 (09:14→16:49)
[2022-07-05] MEDS: DIVALPROEX SODIUM 250 MG TABLET.DR PO SCH ×3 (09:14→16:49)
[2022-07-05] MEDS: HALOPERIDOL 5 MG TABLET PO SCH ×2 (09:14→16:49)
--- NOTE | 2022-07-06 04:16 | NUR ---
Pt c/o indigestion. Maalox 30 cc po prn given as ordered. Will continue to monitor.
--- NOTE | 2022-07-06 05:35 | NUR ---
Post 1 hr Maalox effective. Indigestion relieved. Will continue to monitor. Will endorse to next shift.
[2022-07-06] MEDS: LORAZEPAM 0.5 MG TABLET PO PRN ×3 (06:23→12:38)
--- NOTE | 2022-07-06 06:24 | NUR ---
Pt c/o anxiety. Least restrictive measures ineffective. Ativan 1 mg po prn given as ordered. Will continue to monitor.
[2022-07-06] MEDS: BENZTROPINE MESYLATE (1 MG) 1 MG TABLET PO SCH ×2 (08:23→16:58)
[2022-07-06] MEDS: HALOPERIDOL 5 MG TABLET PO SCH ×5 (08:23→20:57)
[2022-07-06] MEDS: DIVALPROEX SODIUM 250 MG TABLET.DR PO SCH ×3 (08:23→16:58)
[2022-07-06] MEDS ORDERED: HALOPERIDOL LACTATE INJ 5 MG/ML VIAL IM PRN (09:00)
--- NOTE | 2022-07-06 12:39 | NUR ---
PT C/O ANXIETY MEDICATED WITH ATIVAN 1MG PO X1.
--- NOTE | 2022-07-06 13:55 | NUR ---
NEERAJ Note: SW spoke with patient in regards to her plan with discharge. NEERAJ explained that her ex- stated that she cannot return back. SW offered her options she stated that she will go to a nursing facility where she is able to smoke. NEERAJ will send clinicals out to find placement.
[2022-07-07] MEDS: HALOPERIDOL 5 MG TABLET PO SCH ×4 (08:13→21:21)
[2022-07-07] MEDS: DIVALPROEX SODIUM 250 MG TABLET.DR PO SCH ×3 (08:13→16:36)
[2022-07-07] MEDS: BENZTROPINE MESYLATE (1 MG) 1 MG TABLET PO SCH ×2 (08:13→16:36)
--- NOTE | 2022-07-07 11:19 | NUR ---
Patient refused blood draw (valproic acid ) encourage and explained still refused .
[2022-07-07] MEDS: LORAZEPAM 0.5 MG TABLET PO PRN (14:30)
[2022-07-07 16:00] VITALS: BP 141/91
--- NOTE | 2022-07-08 08:40 | NUR ---
NEERAJ SNF Referral: NEERAJ sent clinicals to [facility] ([phone]) for placement. NEERAJ sent H & P, progress notes, and medication list.
[2022-07-08] MEDS: BENZTROPINE MESYLATE (1 MG) 1 MG TABLET PO SCH ×2 (08:43→17:14)
[2022-07-08] MEDS: HALOPERIDOL 5 MG TABLET PO SCH ×4 (08:43→20:21)
[2022-07-08] MEDS: DIVALPROEX SODIUM 250 MG TABLET.DR PO SCH ×3 (08:43→17:13)
[2022-07-08] MEDS: LORAZEPAM 0.5 MG TABLET PO PRN (08:44)
--- NOTE | 2022-07-08 09:00 | NUR ---
NURSE NOTE: PT ANXIOUS AT THIS TIME. ATIVAN PO ADMINISTERED ORDERED. PT RM WELL. WILL CONT TO MONITOR.
--- NOTE | 2022-07-08 09:45 | NUR ---
NURSE NOTE: PT CALM AT THIS TIME. ATIVAN EFFECTIVE. WILL CONT TO MONITOR.
--- NOTE | 2022-07-08 10:13 | NUR ---
SNF Contact: SW received a call from Dariela admin from [facility] ([phone]) who stated that pt is accepted but would need a psych clearance.
--- NOTE | 2022-07-08 11:07 | NUR ---
SW FAMILY CONTACT: Per pt's request, pt asked this blurb writer to contact ex- Harjit ([phone]) to see if he is allowing her to return back. Harjit did not respond and this blurb writer left a detailed voicemail.
[2022-07-08] MEDS ORDERED: HALOPERIDOL DECANOATE IM 100 MG/ML AMPUL IM ONE (13:00)
--- NOTE | 2022-07-08 13:47 | NUR ---
RN-CO: DR MANZO ordered Chocolate Ensure TID noted and carried out. (per pt request)
[2022-07-08] MEDS ORDERED: ENSURE ENLIVE CHOC 237 ML CAN PO SCH (17:00)
[2022-07-08] MEDS: ENSURE ENLIVE CHOC 237 ML CAN PO SCH (17:13)
[2022-07-09] MEDS: HALOPERIDOL 5 MG TABLET PO SCH ×3 (08:07→16:57)
[2022-07-09] MEDS: BENZTROPINE MESYLATE (1 MG) 1 MG TABLET PO SCH ×2 (08:07→16:57)
[2022-07-09] MEDS: ENSURE ENLIVE CHOC 237 ML CAN PO SCH ×3 (08:07→16:57)
[2022-07-09] MEDS: DIVALPROEX SODIUM 250 MG TABLET.DR PO SCH ×2 (08:07→21:23)
--- NOTE | 2022-07-09 09:14 | NUR ---
Pr. refused for Valproic Acid level, explained on the importance and still refusing.Dr. Bentley made aware.
[2022-07-09] MEDS ORDERED: OLANZAPINE 10 MG VIAL IM ONE (09:30)
--- NOTE | 2022-07-09 09:33 | NUR ---
Pt. is highly agitated, screaming yelling and very loud and disruptive in the unit. Pt is non directable and Dr. Bentley in the unit and ordered Zyprexa 10MG IM. Addendum: 07/09/22 at 1013 by ANGELA BARR RN and verbally abusive to staffs
[2022-07-09] MEDS: LORAZEPAM 0.5 MG TABLET PO PRN (18:27)
--- NOTE | 2022-07-09 19:59 | NUR ---
GPS ALUMINUM BOATS ASSEMBLER NOTE: PT AWAKE IN BED, CALM , NO S/SX OF RESP DISTRESS NOTED, BREATHING EVEN AND UNLABORED @ RA. ALERT ORIENTED X 2. AIR HOIST OPERATOR REPORTED THAT PT REFUSING VITALS, OFFERED TO TAKE VITALS BY NURSE - STILL REFUSING. PT DENIES SUICIDAL AND HOMICIDAL IDEATIONS AT THIS TIME, AMBULATORY. PT EDUCATED ON THE USE OF CALL LIGHT. PT'S BED SR'S UP X 2 FOR SAFETY MEASURES, BED LOCK ON, AND AT LOWEST POSITION. WILL CONT TO MONITOR PT'S SAFETY AND ANTICIPATE NEEDS.
--- NOTE | 2022-07-09 21:23 | NUR ---
PT CURRENTLY @ DIN[facility]ING AREA WATCHING TV, DUE MEDICATIONS GIVEN AND PT COMPLIANT, TOOK MEDS WITHOUT DIFFICULTY. WILL CONT TO MONITOR.
[2022-07-09] MEDS ORDERED: QUETIAPINE FUMARATE 100 MG TABLET PO SCH (22:00)
--- NOTE | 2022-07-10 | NUR ---
Pt still awake, pacing in her bedroom- hallway , appears calm, denies pain or discomfort, offered PRN Ambien for insomnia- pt refused. Cont to monitor pt's behavior and safety.
--- NOTE | 2022-07-10 01:02 | NUR ---
Pt noted in her bed -sleeping, easy to arouse, breathing even and unlabored. Bed alarm on, sr's x 2 bed at lowest position for safety. Will cont to monitor.
--- NOTE | 2022-07-10 01:38 | NUR ---
Pt awake and up again, sitting in the chair @ hallway next to nurse's stating with LOT BOSS 's view and visible to staff. Denies pain or discomfort. Will cont to monitor.
--- NOTE | 2022-07-10 02:05 | NUR ---
Pt back to her bed and sleeping. Safety measures observed. Will cont to monitor.
[2022-07-10] MEDS: LORAZEPAM 0.5 MG TABLET PO PRN (03:43)
--- NOTE | 2022-07-10 03:46 | NUR ---
Pt is up again and pacing, with episode of agitation and anxiety pt requesting for PRN Ativan medication, PRN as ordered given. Will cont to monitor.
--- NOTE | 2022-07-10 04:46 | NUR ---
Post 1 hr Ativan, pt is calm, awake, no s/sx of resp distress. Will cont to monitor.
--- NOTE | 2022-07-10 06:02 | NUR ---
Pt awake , ambulating , pacing hallway, verbally abusive to staff,using foul language to staffs accusative, gets very loud, refusing am care - through out the night pt focused on drinks/ foods. Pt with no s/sx of distress, tolerated all her medications. Will cont to monitor , and will endorse cameron to am oncoming nurse.
[2022-07-10] MEDS: DIVALPROEX SODIUM 250 MG TABLET.DR PO SCH ×2 (08:07→21:00)
[2022-07-10] MEDS: BENZTROPINE MESYLATE (1 MG) 1 MG TABLET PO SCH ×2 (08:08→17:08)
[2022-07-10] MEDS: HALOPERIDOL 5 MG TABLET PO SCH ×3 (08:08→17:08)
[2022-07-10] MEDS: ENSURE ENLIVE CHOC 237 ML CAN PO SCH ×3 (08:10→17:08)
--- NOTE | 2022-07-10 08:40 | NUR ---
Pt is highly agitated, aggressive, screaming, yelling, verbally abusive towards the psychiatrist and throwing the chair and the pudding in the floor. Psychiatrist ordered Zyprexa 10 mg IM.
[2022-07-10] MEDS ORDERED: OLANZAPINE 10 MG VIAL IM ONE (09:00)
--- NOTE | 2022-07-10 11:59 | NUR ---
NEERAJ Family Contact; SW received a call from ex- Harjit ([phone]) and left a voicemail that pt cannot return back to his house.
--- NOTE | 2022-07-10 19:30 | NUR ---
GPS RN NOTE, RECEIVED PATIENT AWAKE AND IN BED, NO S/S OR COMPLAINTS OF PAIN AT THIS TIME. PATIENT IS DISPLAYING NO S/S OF APPARENT DISTRESS AT THIS TIME. PATIENT BREATHING IS UNLABORED WITH EQUAL RISE AND FALL OF THE CHEST. PATIENT IS ALERT AND ORIENTED X 2 ON ROOM AIR. PATIENT IS REFUSING VITAL SIGNS. PATIENT IS SELECTIVE WITH MEDICATIONS, DEMANDING, ENTITLED, HAS POOR BOUNDARIES, NEEDS LIMIT SETTING, POLITE AT TIMES, ABLE TO BE REDIRECTED, AND COOPERATIVE AT TIMES. PATIENT DENIES SUICIDAL AND HOMICIDAL IDEATIONS AT THIS TIME. PATIENT ASSISTED WITH TURNING AND REPOSITIONING Q2HR AND PRN FOR COMFORT AND CIRCULATION. PATIENT HAS NO NEEDS AT THIS TIME. PATIENT EDUCATED ON THE USE OF THE CALL FELDMAN. PATIENT BED SIDE RAILS UP X 2 FOR SAFETY. PATIENT BED IS LOCKED, LOW, WITH BED ALARM ON. WILL CONTINUE TO MONITOR THIS PATIENT Q15 MINUTES WITH THE HELP OF STAFF TO MAINTAIN SAFETY.
[2022-07-10] MEDS: QUETIAPINE FUMARATE 100 MG TABLET PO SCH (21:22)
--- NOTE | 2022-07-10 21:45 | NUR ---
GPS RN NOTE, PATIENT REFUSED DEPAKOTE 500MG PO Q12HR AND SEROQUEL 200MG PO HS. OFFERED BOTH MEDICATIONS THREE TIMES AND STILL PATIENT REFUSED STATING, " FUCK YOU, ARE YOU A DOCTOR, NO, THEN LEAVE ME THE FUCK ALONE ". EDUCATED PATIENT ON THE RISKS AND BENEFITS OF TAKING AND REFUSING DEPAKOTE AND SEROQUEL. PATIENT IS RIESED GAVE BENADRYL 25MG IM TID, AND HALDOL LACTATE 5MG IM QID ORDERED. WILL CONTINUE TO MONITOR THIS PATIENT WITH THE HELP OF STAFF.
[2022-07-11] MEDS: LORAZEPAM 0.5 MG TABLET PO PRN (03:32)
[2022-07-11] MEDS: ENSURE ENLIVE CHOC 237 ML CAN PO SCH ×3 (07:23→17:40)
[2022-07-11] MEDS: DIVALPROEX SODIUM 250 MG TABLET.DR PO SCH ×3 (08:16→21:17)
[2022-07-11] MEDS: HALOPERIDOL 5 MG TABLET PO SCH ×3 (08:16→17:41)
[2022-07-11] MEDS: BENZTROPINE MESYLATE (1 MG) 1 MG TABLET PO SCH ×2 (08:16→17:41)
[2022-07-11] MEDS: QUETIAPINE FUMARATE 100 MG TABLET PO SCH ×2 (21:17→21:22)
--- NOTE | 2022-07-11 21:22 | NUR ---
GPS RN NOTE, PATIENT REFUSED SEROQUEL 200MG PO HS. OFFERED BOTH MEDICATIONS THREE TIMES AND STILL PATIENT REFUSED STATING, " NO I DON'T NEED THAT MEDICATION ". EDUCATED PATIENT ON THE RISKS AND BENEFITS OF TAKING AND REFUSING SEROQUEL. WILL CONTINUE TO MONITOR THIS PATIENT WITH THE HELP OF STAFF.
[2022-07-12] MEDS: ENSURE ENLIVE CHOC 237 ML CAN PO SCH ×3 (08:10→17:21)
[2022-07-12] MEDS: DIVALPROEX SODIUM 250 MG TABLET.DR PO SCH ×3 (08:12→21:05)
[2022-07-12] MEDS: BENZTROPINE MESYLATE (1 MG) 1 MG TABLET PO SCH ×2 (08:12→17:22)
[2022-07-12] MEDS: HALOPERIDOL 5 MG TABLET PO SCH ×3 (08:12→17:22)
[2022-07-12] MEDS: LORAZEPAM 0.5 MG TABLET PO PRN (14:38)
--- NOTE | 2022-07-12 16:09 | NUR ---
GPS/RN PT REFUSED BLOOD DRAWN SECOND TIME
[2022-07-12 20:09] VITALS: BP 137/77
[2022-07-12] MEDS: QUETIAPINE FUMARATE 100 MG TABLET PO SCH (21:31)
--- NOTE | 2022-07-12 21:38 | NUR ---
RN NOTE PATIENT REFUSED SCHEDULED SEROQUEL FOR TONIGHT. DESPITE OF EDUCATION PROVIDED REGARDING MEDICATION COMPLIANCE. OFFERED X3. PATIENT BECAME AGITATED. PATIENT STATED, "NO, I DON'T WANT IT".
[2022-07-13] MEDS: ENSURE ENLIVE CHOC 237 ML CAN PO SCH ×3 (08:50→17:56)
[2022-07-13] MEDS: DIVALPROEX SODIUM 250 MG TABLET.DR PO SCH ×3 (08:51→21:12)
[2022-07-13] MEDS: BENZTROPINE MESYLATE (1 MG) 1 MG TABLET PO SCH ×2 (08:51→17:56)
[2022-07-13] MEDS: HALOPERIDOL 5 MG TABLET PO SCH ×5 (08:51→21:12)
[2022-07-13 09:19] LABS: BASOPHILS % (AUTO) 0.2 % (0.0-2.0); EOSINOPHILS % (AUTO) 0.7 % (0.0-6.0); HEMATOCRIT 38 % (33-45); HEMOGLOBIN 12.5 g/dL (11.5-14.8); LYMPHOCYTES # (AUTO) 1.8 K/uL (0.8-4.8); LYMPHOCYTES % (AUTO) 13.5 % (20.0-44.0); MEAN CORPUSCULAR HGB CONC 33 g/dl (31.0-36.0); MEAN CORPUSCULAR VOLUME 87 fL (82-100); MONOCYTES % (AUTO) 7.4 % (2.0-12.0); NEUTROPHILS # (AUTO) 10.4 K/uL (1.8-8.9); NEUTROPHILS % (AUTO) 78.2 % (43.0-81.0); PLATELET COUNT (AUTO) 336 K/uL (150-450); RED BLOOD CELL COUNT(AUTO) 4.34 MIL/uL (4.0-5.2); WHITE BLOOD COUNT (AUTO) 13.2 K/uL (4.3-11.0)
[2022-07-13 09:42] LABS: ALBUMIN 2.8 g/dL (3.4-5.0); BILIRUBIN,TOTAL 0.3 mg/dL (0.2-1.0); CALCIUM, SERUM 8.5 mg/dL (8.5-10.1); CREATININE 0.8 mg/dL (0.6-1.3); POTASSIUM 4.6 mmol/L (3.5-5.1); TOTAL PROTEIN, SERUM 7.4 g/dL (6.4-8.2)
--- NOTE | 2022-07-13 13:25 | NUR ---
NURSE NOTE: PT AGITATED AT THIS TIME. ATIVAN PO ADMINISTERED ORDERED. PT RM WELL. WILL CONT TO MONITOR.
--- NOTE | 2022-07-13 14:25 | NUR ---
NURSE NOTE: PT CALM AT THIS TIME. ATIVAN EFFECTIVE. WILL CONT TO MONITOR.
[2022-07-13] MEDS: LORAZEPAM 0.5 MG TABLET PO PRN (15:21)
--- NOTE | 2022-07-14 08:11 | NUR ---
SW Discharge Note: [facility] located at [address] [place] [address]; ([phone]). Please arrange ambulance at 1PM. Prenatal Nurse spoke with Traci Web Press [employer] ([phone]) who stated patient will be accepted at facility today. Patient is alert and oriented x3 and is not able to plan for self-care at this time but is willing to accept care provided by the facility. Patient denies any suicidal or homicidal ideations. Patient is aware and agreeable with discharge plans. Patients ex- ([phone]) is aware. Patient will continue to follow-up with (psychiat[place]) [place] [address] [address]; ([phone]) and (Bunk House Worker) Dr. Lin [address] [place] [id number]; ([phone]). Patient presents with euthymic mood and congruent affect.
[2022-07-14] MEDS: BENZTROPINE MESYLATE (1 MG) 1 MG TABLET PO SCH (08:26)
[2022-07-14] MEDS: DIVALPROEX SODIUM 250 MG TABLET.DR PO SCH (08:26)
[2022-07-14] MEDS: HALOPERIDOL 5 MG TABLET PO SCH (08:26)
[2022-07-14] MEDS: LORAZEPAM 0.5 MG TABLET PO PRN (08:29)
--- NOTE | 2022-07-14 08:30 | NUR ---
RN-NOTES PATIENT REQUESTING ATIVAN FOR HER ANXIETY. ATIVAN 1MG P.O GIVEN PRN ORDER. WILL CONT. MONITORING FOR SAFETY AND BEHAVIOR.
[2022-07-14] MEDS: ENSURE ENLIVE CHOC 237 ML CAN PO SCH ×2 (08:36→12:52)
--- NOTE | 2022-07-14 09:30 | NUR ---
RN-NOTES PATIENT WATCHING TV IN THE DAY ROOM CALM,NO ACUTE DISTRESS NOTED.
--- NOTE | 2022-07-14 12:55 | NUR ---
RN-DISCHARGE NOTES PATIENT HAD A DISCHARGE ORDER FROM DR. FREDERICK, DR. GLOVER MEDICALLY DISCHARGE PATIENT. REPORT WAS GIVEN TO YARY ([facility] STAFF). PATIENT DID NOT VERBALIZE SI/HI,DENIES VISUAL/AUDITORY HALLUCINATIONS AT THE TIME SHE LEFT THE UNIT. PATIENT LEFT THE UNIT IN STABLE CONDITION A/O X3 NO ACUTE DISTRESS NOTED. ALL BELONGINGS WAS GIVEN BACK TO THE PATIENT.INSPECTOR PENETRANT BY AMBULANCE WITH TWO STAFF ASSIST. PATIENT REFUSED FULL BODY ASSESSMENT PRIOR TO DISCHARGE.
== END 2022-07-14 12:55 | DRG 885 ==
LOC: ER 15:02 → GPS 18:47
PROVIDERS: ADMIT Psychiatry & Neurology Psychiatry; ATTEND Nurse Practitioner Acute Care
DX: F25.0 Schizoaffective disorder, bipolar type (principal); F29 Unspecified psychosis not due to a substance or known physiological condition; Z20.822 Contact with and (suspected) exposure to COVID-19; E78.5 Hyperlipidemia, unspecified; I10 Essential (primary) hypertension; Z73.6 Limitation of activities due to disability; F32.A Depression, unspecified
CPT/HCPCS: 36415; 80048-TC; 80053-TC; 80076-TC; 80164-TC; 81001; 82962-TC; 85025-TC; 87081-TC; C9803; G0480; J0515; J1200; J1630; J1631; J2060; J3490

== ENCOUNTER 2022-11-03 23:40 | Inpatient (IN) | payer MEDICARE, OTHER ==
[~2022-11-03] VITALS: Ht 162.6 cm; Wt 97.1 kg
[~2022-11-03 23:40] MED LIST changes: -BENZ1TAB7 PO; -CLON0.5T4 PO; +FLUR15CA14 PO; -HALO5TAB PO; -TEMA15CA PO
[2022-11-03] MEDS ORDERED: LORAZEPAM INJ 2 MG/ML VIAL ONE (23:59)
[2022-11-03] MEDS ORDERED: diphenhydrAMINE HCL 50 MG/ML VIAL ONE (23:59)
[2022-11-03] MEDS ORDERED: HALOPERIDOL LACTATE INJ 5 MG/ML VIAL ONE (23:59)
[2022-11-04] MEDS ORDERED: LORAZEPAM INJ 2 MG/ML VIAL IV ONE
[2022-11-04] MEDS ORDERED: HALOPERIDOL LACTATE INJ 5 MG/ML VIAL IM ONE
[2022-11-04] MEDS ORDERED: diphenhydrAMINE HCL 50 MG/ML VIAL IM ONE
--- NOTE | 2022-11-04 | NUR ---
[facility] FOR AGGRESSIVE BEHAVIOR, NEEDS MED CLEARANCE. PT AGGITATED. TOLERATING R/A WELL WITH NO RESP DISTRESS. PT CHANGED IN GOWN, BELONGINGS COLLECTED, WANDED BY SECURITY. SAFETY MEASURES IN PLACE.
--- NOTE | 2022-11-04 00:14 | NUR ---
COVID ANTIGEN SWAB COLLECTED AND SENT TO LAB
[2022-11-04 01:03] LABS: BASOPHILS % (AUTO) 0.5 % (0.0-2.0); EOSINOPHILS % (AUTO) 1.5 % (0.0-6.0); HEMATOCRIT 41 % (33-45); HEMOGLOBIN 13.6 g/dL (11.5-14.8); LYMPHOCYTES # (AUTO) 2.4 K/uL (0.8-4.8); LYMPHOCYTES % (AUTO) 23.7 % (20.0-44.0); MEAN CORPUSCULAR HGB CONC 33 g/dl (31.0-36.0); MEAN CORPUSCULAR VOLUME 86 fL (82-100); MONOCYTES # (AUTO) 0.8 K/uL (0.1-1.30); MONOCYTES % (AUTO) 8.4 % (2.0-12.0); NEUTROPHILS # (AUTO) 6.7 K/uL (1.8-8.9); NEUTROPHILS % (AUTO) 65.9 % (43.0-81.0); PLATELET COUNT (AUTO) 285 K/uL (150-450); WHITE BLOOD COUNT (AUTO) 10.1 K/uL (4.3-11.0)
--- NOTE | 2022-11-04 01:11 | NUR ---
URINE COLLECTED AND SENT TO LAB
[2022-11-04 01:19] LABS: ACETAMINOPHEN 0 ug/ml (10-30); ALANINE AMINOTRANSFERASE 17 U/L (12-78); ALBUMIN 3.3 g/dL (3.4-5.0); ALCOHOL, BLOOD < 3 mg/dL (0-0); ALKALINE PHOSPHATASE 106 U/L (46-116); ASPARTATE AMINOTRANSFERASE 15 U/L (15-37); BILIRUBIN,DIRECT 0.1 mg/dL (0.0-0.2); BILIRUBIN,TOTAL 0.3 mg/dL (0.2-1.0); CALCIUM, SERUM 9.1 mg/dL (8.5-10.1); CARBON DIOXIDE 25 mmol/L (21-32); CHLORIDE 105 mmol/L (98-107); CREATININE 0.6 mg/dL (0.6-1.3); GLUCOSE 90 mg/dL (74-106); POTASSIUM 3.6 mmol/L (3.5-5.1); SODIUM SERUM 139 mmol/L (136-145); TOTAL PROTEIN, SERUM 6.9 g/dL (6.4-8.2); UREA NITROGEN, BLOOD 16 mg/dL (7-18)
[2022-11-04 03:35] LABS: BILIRUBIN,URINE NEGATIVE (NEGATIVE); COLOR,URINE DARK YELLOW (YELLOW); LEUKOCYTE ESTERASE ,URINE 1+ (NEGATIVE); NITRITE, URINE POSITIVE (NEGATIVE); PROTEIN,URINE 1+ mg/dl (NEGATIVE); UGLUCOSE NEGATIVE (NEGATIVE); UROBILINOGEN,URINE 0.2 EU/dL (0.2)
[2022-11-04 03:39] LABS: BACTERIA,URINE Moderate /HPF (None Seen); RBC,URINE 0-2 /HPF (0-2); SQUAMOUS EPITHELIAL CELL,UR Few /HPF (None Seen)
--- NOTE | 2022-11-04 04:24 | NUR ---
PT SLEEPING; RR EVEN AND NON LABORED. SAFETY MEASURES IN PLACE. VSS
--- NOTE | 2022-11-04 06:42 | NUR ---
PT IS GOING TO ROOM 217 AFTER CHANGED OF SHIFT REPORT.
--- NOTE | 2022-11-04 08:17 | NUR ---
Report given to Viviana RN/GPS, patient can go to room 217
[2022-11-04] MEDS ORDERED: OLANZAPINE 10 MG VIAL IM STA (08:39)
[2022-11-04] MEDS ORDERED: LORAZEPAM INJ 2 MG/ML VIAL IM STA (08:39)
--- NOTE | 2022-11-04 08:41 | NUR ---
RN- NOTES DR. FREDERICK ORDERED ZYPREXA 10MG IM, ATIVAN 1MG IM ONCE DUE TO PATIENT AGGRESSIVE, POSTURING, ATTEMPTING TO HIT STAFF, AND YELLING PROFANITIES. Addendum: 11/04/22 at 0903 by BETTINA LEDBETTER RN INJECTION ADMINISTERED PER MD ORDERS.
--- NOTE | 2022-11-04 08:45 | NUR ---
RN- ADMISSION NOTES PATIENT IS A 66 YEAR OLD FEMALE ADMITTED FROM ER, PLACED ON A 5150 FOR DTS. PER HOLD, "" UPON FACE TO FACE ASSESSMENT, PATIENT IS ALERT AND ORIENTED X1, UNKEMPT, DISHEVELED, PRESSURED/SLURRED SPEECH, DENIES SI/HI BUT IS CONFUSED. PATIENT IS HYPERVERBAL, AGGRESSIVE, EASILY ANGERED/AGITATED, CONFUSED, DISORIENTED, YELLING, POSTURING, ATTEMPTING TO HIT STAFF, AND DISORGANIZED THOUGHT PROCESS. VITAL SIGNS TAKEN. DR. FREDERICK AND DR. BOTELLO CONTACTED AND INFORMED OF ADMISSION WITH PSYCHIATRIC ADMITTING ORDERS. PATIENT HANDBOOK GIVEN WITH PATIENT'S RIGHTS AND GUIDE TO PRESCRIPTIONS. PATIENT REFUSED TO WEAR AN ID BAND, REFUSED PHOTOGRAPH, AND REFUSED SKIN CHECK. WILL CONTINUE TO MONITOR Q 15 MINUTES FOR SAFETY AND BEHAVIOR PER GPS PROTOCOL. Addendum: 11/04/22 at 1455 by BETTINA LEDBETTER RN RN- ADMISSION NOTES COMPLETION PER HOLD, "EX- REPORTED CLIENT IS MAKING THREAT TO KILL HERSELF TODAY BY OVERDOSING ON PILLS, CUTTING OUT HER EYES WITH A KNIFE, AND HAS CONTACTED SISTER GIVING HER GOODBYES. EX- REPORTED CLIENT HAS BEEN SITTING OUTSIDE ON CURB YELLING AT NEIGHBOR, "I WILL KILL MYSELF.""
[2022-11-04 09:00] VITALS: BP 166/105
[2022-11-04] MEDS ORDERED: MAG HYDROX/AL HYDROX/SIMETH 30 ML UDC PO PRN (09:00)
[2022-11-04] MEDS ORDERED: ZOLPIDEM TARTRATE 5 MG TABLET PO PRN (09:00)
[2022-11-04] MEDS ORDERED: ACETAMINOPHEN 325 MG TABLET PO PRN (09:00)
[2022-11-04] MEDS ORDERED: MAGNESIUM HYDROXIDE 30 ML UDC PO PRN (09:00)
--- NOTE | 2022-11-04 10:15 | NUR ---
NEERAJ Clinical Note: Pt placed on a 5150 hold for danger to herself. Pt was been making threats to kill herself. Patient currently resides with her ex- Harjit ([phone]) located at [address] [place] [address]; ([phone]). Unsure if pt will go back home to ex-. NEERAJ will work with the treatment team, pt, and family to help coordinate appropriate discharge.
--- NOTE | 2022-11-04 10:15 | NUR ---
NEERAJ Initial Discharge Note: Patient currently resides with her ex- Harjit ([phone]) located at [address] [place] [address]; ([phone]). Unsure if pt will go back home to ex-. NEERAJ will work with the treatment team, pt, and family to help coordinate appropriate discharge.
--- NOTE | 2022-11-04 10:15 | NUR ---
Treatment Plan: Pt refused to sign treatment plan and was aggressive.
[2022-11-04] MEDS: NITROFURANTOIN/MONOHYDRATE MACROCRYSTALS 100 MG CAPSULE PO SCH ×4 (12:30→21:18)
[2022-11-04] MEDS: HALOPERIDOL 5 MG TABLET PO SCH (17:00)
[2022-11-04] MEDS: BENZTROPINE MESYLATE (1 MG) 1 MG TABLET PO SCH (17:00)
[2022-11-04] MEDS: DIVALPROEX SODIUM 500 MG TABLET.DR PO SCH ×2 (21:00→21:18)
--- NOTE | 2022-11-04 21:52 | NUR ---
RN NOTES; PATIENT REFUSED 2100 MEDS.
--- NOTE | 2022-11-05 07:50 | NUR ---
RN NOTES PATIENT AWAKE IN BED, ALERT AND ORIENTED X1, PATIENT IS HYPERVERBAL, AGGRESSIVE, EASILY ANGERED/AGITATED, CONFUSED, DISORIENTED AND YELLING WILL CONTINUE TO MONITOR Q 15 MINUTES FOR SAFETY AND BEHAVIOR PER GPS PROTOCOL.
--- NOTE | 2022-11-05 09:26 | NUR ---
SW Family Contact: SW attempted to contact pt's ex- Harjit ([phone]) and left a detailed voicemail.
[2022-11-05] MEDS: NITROFURANTOIN/MONOHYDRATE MACROCRYSTALS 100 MG CAPSULE PO SCH ×2 (09:31→21:11)
[2022-11-05] MEDS: DIVALPROEX SODIUM 500 MG TABLET.DR PO SCH ×2 (09:31→21:10)
[2022-11-05] MEDS: BENZTROPINE MESYLATE (1 MG) 1 MG TABLET PO SCH ×2 (09:31→17:11)
[2022-11-05] MEDS: LORAZEPAM 0.5 MG TABLET PO PRN (09:31)
[2022-11-05] MEDS: HALOPERIDOL 5 MG TABLET PO SCH ×3 (09:32→17:11)
--- NOTE | 2022-11-05 14:19 | NUR ---
RN NOTES ALL MEDS WAS GIVEN WITH NO ISSUES, PATIENT WAS MED COMPLIANT HOWEVER VERY AGGRESSIVE VERBALLY, KEPT ON YELLING TO STAFF. WILL CONTINUE TO MONITOR.
--- NOTE | 2022-11-05 15:33 | NUR ---
NEERAJ Family Contact: NEERAJ received a call from pt's ex- Harjit ([phone]) and SW attempted to discuss about pt's discharge plan. Pt has been living with ex-. Last, she was at [facility] in Jun-Jul 2022 and was discharged to [facility] and pt was released back to ex-husbands house from the SNF. denying that this happened, however, pt's hold indicates that they have been living with each other. Harjit stated "yes" she has been living with him but does not allow her back. This has been a pattern within their relationship. NEERAJ explained to Harjit that the hospital cannot hold her to make that decision of her placement but will encourage her to go to a SNF.
--- NOTE | 2022-11-05 18:29 | NUR ---
RN NOTES PATIENT IS AWAKE A/OX4, ABLE TO MAKE NEEDS KNOWN. BREATHING EVEN AND UNLABORED WITH NO S/S OF DISTRESS PATIENT IS EASILY GETS AGITATED, NEEDY, VERBALLY AGGRESSIVE TOWARDS STAFF. ALL DUE MEDS GIVEN, ENCOURAGED PATIENT TO KEEP CLEAN AND TIDY. ALL SAFETY PRECAUTIONS IMPLEMENTED. WILL ENDORSED TO NIGHT NURSE FOR CONTINUITY OF CARE.
--- NOTE | 2022-11-05 19:30 | NUR ---
GPS RN OPENING NOTE RECEIVED PT WALKING THE HALLWAY, YELLING, VERBALLY AGGRESSIVE. A/O X4 AND ABLE TO MAKE NEEDS KNOWN. HYPERVERBAL AND EASILY AGITATED. NO ACUTE DISTRESS NOTED AT THIS TIME. ALL NEEDS ATTENDED ANTICIPATED AT THIS TIME. WILL CONTINUE TO MONITOR FOR SAFETY AND BEHAVIOR.
[2022-11-06] MEDS: NITROFURANTOIN/MONOHYDRATE MACROCRYSTALS 100 MG CAPSULE PO SCH ×2 (08:09→20:23)
[2022-11-06] MEDS: HALOPERIDOL 5 MG TABLET PO SCH ×3 (08:10→16:06)
[2022-11-06] MEDS: BENZTROPINE MESYLATE (1 MG) 1 MG TABLET PO SCH ×2 (08:10→16:06)
[2022-11-06] MEDS: DIVALPROEX SODIUM 500 MG TABLET.DR PO SCH ×2 (08:10→20:23)
[2022-11-06] MEDS: LORAZEPAM 0.5 MG TABLET PO PRN (10:59)
--- NOTE | 2022-11-06 11:24 | NUR ---
Pt. is highly agitated, aggressive, screaming and yelling, verbally abusive, angry and posturing to staff. Dr. Bentley made aware and ordered Zyprexa 10 mg IM.
[2022-11-06] MEDS ORDERED: LORAZEPAM INJ 2 MG/ML VIAL IM ONE (11:30)
[2022-11-06] MEDS ORDERED: OLANZAPINE 10 MG VIAL IM ONE (11:30)
--- NOTE | 2022-11-06 19:15 | NUR ---
RN notes Pt is laying in bed comfortably. Pt is alert and orientedX2-3, non compliant, abusive towards staffs and easily agitated. No SOB. No S/S of distress noted. Pt denies SI/Hi at this time. snacks is offered and provided. Pt is able to ambulates with a steady gait. Safety precautions is maintained. Will continue to monitor Q 15 mins checks for safety and behavior.
--- NOTE | 2022-11-06 20:11 | NUR ---
RN notes Pt refuses VS at 1999. Pt agitated easily and not following directions. Pt also verbally aggresive towards staffs. Explained risks and benefits. Pt keep refusing. will continue to monitor.
--- NOTE | 2022-11-06 20:14 | NUR ---
RN notes Pt refuses pm meds. Explained risks and risks benefits. Offered multiple times. Pt keep refusing and verbally abusive toward staffs. Charge nurse is aware and informed.
--- NOTE | 2022-11-06 20:28 | NUR ---
RN notes Pt took pm meds without any difficulties. Pt is calm and directable at this time. Snack is provided.
[2022-11-07] MEDS: DIVALPROEX SODIUM 500 MG TABLET.DR PO SCH ×2 (08:44→20:07)
[2022-11-07] MEDS: BENZTROPINE MESYLATE (1 MG) 1 MG TABLET PO SCH ×2 (08:44→16:22)
[2022-11-07] MEDS: NITROFURANTOIN/MONOHYDRATE MACROCRYSTALS 100 MG CAPSULE PO SCH ×2 (08:45→20:07)
[2022-11-07] MEDS: HALOPERIDOL 5 MG TABLET PO SCH ×3 (08:45→16:22)
--- NOTE | 2022-11-07 18:33 | NUR ---
RN-NOTES PATIENT IS VISIBLE IN THE UNIT,A/OX2 GUARDED,NO ACUTE DISTRESS NOTED. COMPLIANT WITH MEDICATIONS. AMBULATORY STEADY GAIT.NOTED PATIENT WITH EASILY ANGRY,IRRITABLE ,NEEDY ,ARGUMENTATIVE,VERBALLY ABUSIVE USING FOUL LANGUAGES AND ACCUSATIVE ,RACIST BEHAVIOR. PATIENT ACCUSING FEMALE STAFF INCLUDING THE AGRICULTURAL CROP FARM MANAGER THE SHE WAS PUSHED ALSO STATED" I DON'T WANT AND [place] PEOPLE". ALL NEEDS ATTENDED AND ANTICIPATED. NEEDS FREQUENT REDIRECTIONS.WILL CONT. MONITORING FOR SAFETY AND BEHAVIOR.WILL ENDORSE TO INCOMING NURSE FOR THE CONTINUITY OF CARE.
--- NOTE | 2022-11-07 19:15 | NUR ---
RN notes Pt is resting in bed comfortably. Pt is alert and orientedX2-3, non compliant, abusive towards staffs and easily agitated. No SOB. No S/S of distress noted. Pt denies SI/Hi at this time. snacks is offered and provided. Pt is able to ambulates with a steady gait. Safety precautions is maintained. Will continue to monitor Q 15 mins checks for safety and behavior.
--- NOTE | 2022-11-07 20:12 | NUR ---
RN notes Pt took meds without any difficulties.
--- NOTE | 2022-11-08 07:30 | NUR ---
PT RECEIVED RESTING COMFORTABLY IN BED. NO S/S OR C/O PAIN OR DISTRESS NOTED. SIDE RAILS UP X2. WILL CONTINUE PLAN OF CARE
[2022-11-08] MEDS: BENZTROPINE MESYLATE (1 MG) 1 MG TABLET PO SCH ×2 (08:40→16:10)
[2022-11-08] MEDS: DIVALPROEX SODIUM 500 MG TABLET.DR PO SCH ×2 (08:40→22:04)
[2022-11-08] MEDS: NITROFURANTOIN/MONOHYDRATE MACROCRYSTALS 100 MG CAPSULE PO SCH ×2 (08:40→22:04)
[2022-11-08] MEDS: HALOPERIDOL 5 MG TABLET PO SCH ×3 (08:40→16:10)
[2022-11-08] MEDS: LORAZEPAM 0.5 MG TABLET PO PRN ×2 (10:05→16:10)
[2022-11-09] MEDS: LORAZEPAM 0.5 MG TABLET PO PRN (07:51)
--- NOTE | 2022-11-09 07:53 | NUR ---
RN NOTE PT C/O FEELING ANXIOUS AND REQUESTED FOR HER ATIVAN MEDICATION. PT ALSO NOTED TO START BEING AGITATED. ATIVAN 1MG PO ADMINISTERED ORDERED Q6HRS PRN FOR ANXIETY AND AGITATION. WILL MONITOR AND REASSESS PT.
[2022-11-09] MEDS: DIVALPROEX SODIUM 500 MG TABLET.DR PO SCH ×2 (08:48→21:04)
[2022-11-09] MEDS: NITROFURANTOIN/MONOHYDRATE MACROCRYSTALS 100 MG CAPSULE PO SCH (08:48)
[2022-11-09] MEDS: HALOPERIDOL 5 MG TABLET PO SCH ×4 (08:48→17:00)
[2022-11-09] MEDS: BENZTROPINE MESYLATE (1 MG) 1 MG TABLET PO SCH ×2 (08:48→17:00)
--- NOTE | 2022-11-09 09:48 | NUR ---
SW Note: Pt has been aggressive and has been verbally abusive. She has been making threatening comments and has been racist towards this proposal lead writer.
--- NOTE | 2022-11-09 12:03 | NUR ---
Court Hearing: Patient's court hearing for 6500 was today and it was upheld for GD.
--- NOTE | 2022-11-09 12:03 | NUR ---
Court Notification: SW attempted to contact pt's ex- Harjit ([phone]) and left a voicemail of [phone] hearing.
--- NOTE | 2022-11-09 13:50 | NUR ---
RN NOTE PT REFUSED HER HALDOL MEDICATION SCHEDULED AT 1300. OFFERED AND EXPLAINED RISK AND BENEFITS, PT STILL REFUSED.
--- NOTE | 2022-11-09 14:45 | NUR ---
RN-CO: PT REFUSED ATIVAN PO FOR YELLING RACIAL SLURS TO STAFF. NON REDIRECTABLE. SHE WAS THREATENING TO THROW WATER TO RN/STAFF.
--- NOTE | 2022-11-09 15:00 | NUR ---
RN-CO: PT IS VERBALLY ABUSIVE , RACIST, YELLING, EXTREMELY ENTITLED AND DEMANDING. UNABLE TO REDIRECT. SHE WAS THREATENING TO LEAVE AMA. AWOL RISK.
[2022-11-09] MEDS ORDERED: OLANZAPINE 10 MG VIAL IM STA (15:19)
[2022-11-09] MEDS ORDERED: LORAZEPAM INJ 2 MG/ML VIAL IM STA (15:19)
--- NOTE | 2022-11-09 15:21 | NUR ---
RN NOTE PT NOTED WITH SEVERE ANXIETY AND AGITATION. PT STARTED SCREAMING AT STAFF AND BEING VERBALLY ABUSE. PT WAS ALSO THREATENING THE PARENT AIDE OF THROWING HER PITCHER OF WATER AT HER. CALMLY REDIRECTED PT AND ENCOURAGED TO DO DEEP BREATHING EXERCISES TO HELP HER FEEL CALM BUT IT WAS INEFFECTIVE. ALSO OFFERED HER ATIVAN PO MEDICATION ORDERED FOR HER ANXIETY, BUT PT STRONGLY REFUSED. PT BECAME EVEN MORE AGGRESSIVE AND CURSING AT STAFF. PT STATED REPEATEDLY, "IF YOU WANT ME TO STOP, GIVE ME A SHOT". CALLED DR. FREDERICK AND MADE HIM AWARE OF PT'S BEHAVIOR WITH ORDERS TO ADMINISTER ZYPREXA 10MG IM X ONE TIME DOSE AND ATIVAN 1 MG IM X ONE TIME DOSE. ORDERS CARRIED OUT BY CHARGE NURSE.
--- NOTE | 2022-11-09 15:25 | NUR ---
RN-CO: CALLED DR FREDERICK FOR IM STAT ORDER , ORDERED ZYPREXA 10 MG IM , ATIVAN 1 MG IM STAT, NOTED AND CARRIED OUT.
--- NOTE | 2022-11-09 15:26 | NUR ---
RN NOTE WITH THE ASSISTANCE OF THE NURSING STAFF, ZYPREXA 10 MG IM AND ATIVAN 1MG IM MEDICATIONS WAS BOTH ADMINISTERED ORDERED X1 ONE TIME DOSE TO HELP MANAGE HER ANXIETY AND AGITATION. ATIVAN PARTIAL DOSE WASTED AND WAS WITNESSED BY KEVIN HOWARD. WILL MONITOR AND REASSESS PT.
--- NOTE | 2022-11-09 16:26 | NUR ---
RN NOTE REASSESSED PT'S BEHAVIOR AFTER AN HOUR OF ZYPREXA AND ATIVAN MEDICATION ADMINISTRATION. PT IS NOW CALM WITH NO EPISODES OF UNTOWARD BEHAVIOR TOWARDS STAFF NOTED AT THIS TIME.
--- NOTE | 2022-11-09 17:07 | NUR ---
RN NOTE PT REFUSED ALL HER MEDICATIONS SCHEDULED AT 1700. EXPLAINED RISK AND BENEFITS, PT STILL REFUSED. PT STATED, "GET AWAY FROM ME".
--- NOTE | 2022-11-10 05:49 | NUR ---
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 WILL ENDORSE TO THE DAY SHIFT.
[2022-11-10] MEDS ORDERED: LORAZEPAM INJ 2 MG/ML VIAL IM STA (07:41)
[2022-11-10] MEDS ORDERED: OLANZAPINE 10 MG VIAL IM STA (07:41)
--- NOTE | 2022-11-10 07:48 | NUR ---
Patient yelling and screaming assaultive behavior patient stated "I want injection ,that's fine". Called with new order Zyprexa 10mg IMX1 stat and Ativan 1mg IM x1 stat .Will continue to monitor for safety q15 minutes .
[2022-11-10 08:00] VITALS: BP 123/71
--- NOTE | 2022-11-10 08:05 | NUR ---
RN NOTE WITH THE ASSISTANCE OF THE NURSING STAFF, ZYPREXA 10 MG IM AND ATIVAN 1MG IM MEDICATIONS WAS BOTH ADMINISTERED ORDERED ONE TIME DOSE TO HELP MANAGE HER ANXIETY AND AGITATION. ATIVAN PARTIAL DOSE WASTED AND WAS WITNESSED BY NORA DUNBAR. WILL MONITOR AND REASSESS PT.
[2022-11-10] MEDS: DIVALPROEX SODIUM 500 MG TABLET.DR PO SCH ×3 (08:56→20:32)
[2022-11-10] MEDS: BENZTROPINE MESYLATE (1 MG) 1 MG TABLET PO SCH ×2 (08:56→16:18)
[2022-11-10] MEDS: HALOPERIDOL 5 MG TABLET PO SCH ×5 (08:57→20:33)
--- NOTE | 2022-11-10 10:31 | NUR ---
Department of Mental Health: Leopoldo Dumont ([phone]) Respooler who stated that they would have to serve pt for Petition for an order authorizing assisted outpatient treatment for November 13 2022 at 3:10PM. Leopoldo served pt and pt ripped the papers and stated "I am not attending". NEERAJ placed copies in the chart. This will be through [employer]: [email or web address]
--- NOTE | 2022-11-10 20:00 | NUR ---
RN NOTE PT REFUSED VITAL SIGNS BEING TAKEN. EDUCATED THE PT, PT STILL REFUSED AND GOT AGITATED.
--- NOTE | 2022-11-10 20:42 | NUR ---
RN NOTE PT IS VERY AGITATED. YELLED AT ME TO "GET OUT" OF HER ROOM. EXPLAINED AND EDUCATED THAT SHE NEEDS TO TAKE HER MEDICATIONS, PT REFUSED TO TAKE THE MEDICATIONS DUE AT 2100. CHARGE NURSE, NORA RAMIREZ, NOTIFIED. MEDICATIONS WERE RETURNED TO THE [facility].
--- NOTE | 2022-11-11 08:42 | NUR ---
NEERAJ Note: SW offered pt options: Nursing facility and assisted living. Pt denied stating that she wants to go to a Hotel.
--- NOTE | 2022-11-11 08:53 | NUR ---
RN-CO: REFUSED LAB 2X. PT BECAME AGITATED WHEN SHE WAS ENCOURAGED.
[2022-11-11] MEDS: BENZTROPINE MESYLATE (1 MG) 1 MG TABLET PO SCH ×2 (09:14→17:36)
[2022-11-11] MEDS: HALOPERIDOL 5 MG TABLET PO SCH ×4 (09:14→21:07)
--- NOTE | 2022-11-11 09:42 | NUR ---
NEERAJ Note: SW received a call from psychiatric social worker Rich ([phone]) who stated that he would want to visit pt tomorrow 11/12 between 11AM to make sure pt understands about her court hearing for Wednesday, 11/13.
[2022-11-11] MEDS: DIVALPROEX SODIUM 500 MG TABLET.DR PO SCH ×3 (11:00→17:36)
--- NOTE | 2022-11-11 20:00 | NUR ---
RN OPENING NOTES: PATIENT AWAKE IN BED, BED IN LOW POSITION, NO COMPLAIN PAIN AND DISCOMFORT AT THIS TIME, ON ROOM AIR SATURATING WELL, NO COMBATIVE BEHAVIOR WAS OBSERVED, PATIENT KEPT CLEAN AND DRY ALL NEEDS MET WILL CONTINUE TO MONITOR
[2022-11-12] MEDS: BENZTROPINE MESYLATE (1 MG) 1 MG TABLET PO SCH ×2 (08:33→16:48)
[2022-11-12] MEDS: LORAZEPAM 0.5 MG TABLET PO PRN (08:33)
[2022-11-12] MEDS: DIVALPROEX SODIUM 500 MG TABLET.DR PO SCH ×3 (08:33→16:48)
[2022-11-12] MEDS: HALOPERIDOL 5 MG TABLET PO SCH ×4 (08:33→20:53)
--- NOTE | 2022-11-12 08:35 | NUR ---
RN- NOTES ATIVAN GIVEN DUE TO PATIENT INCREASED AGITATION AND VERBALIZATION OF ANXIETY.
--- NOTE | 2022-11-12 10:28 | NUR ---
NEERAJ Family Contact: NEERAJ contacted pt's ex- Harjit ([phone]) and notified pt will dc 11/13 of her choice to a hotel. NEERAJ safety planned with him and stated that this production underwriter has given her options of nursing facility and assisted living and she refuses. He requested to speak to the doctor. NEERAJ will ask pt if she allows this.
--- NOTE | 2022-11-12 10:34 | NUR ---
SW Note: SW spoke with pt to ask if pt allows the doctor to speak to ex- Harjit and she denied stating "No, I do not want him to get involved, I have already spoke to my doctor and that is enough for me".
--- NOTE | 2022-11-12 10:36 | NUR ---
SW Family Contact: SW contacted pt's ex- Harjit ([phone]) stated that she does not want him to be involved in her care and does not want the doctor to speak to him. He was notified of this.
--- NOTE | 2022-11-12 10:36 | NUR ---
Department of Mental Health: Leopoldo Dumont ([phone]) Medical Billing And Coding Instructor notified of pt's discharge for 11/13. SW left a detailed voicemail.
--- NOTE | 2022-11-12 11:24 | NUR ---
Department of Mental Health: Rich OCAMPO and [employer] Electrical Checkout Mechanic attempted to meet with pt to discuss about her court hearing and pt refused to speak to both. Pt stated "I do not want to speak to you guys".
--- NOTE | 2022-11-12 18:48 | NUR ---
RN- CLOSING NOTES PATIENT IS AWAKE, LAYING DOWN IN BED, BREATHING EVEN AND NON LABORED WITH NO S/S OF DISTRESS. PATIENT IS GUARDED, ANXIOUS, HYPERVERBAL, NEEDY, ATTENTION SEEKING, EASILY AGITATED, AND MANIPULATIVE. PATIENT ENCOURAGED TO VERBALIZE NEEDS IN A CALM AND RESPECTFUL MANNER, PATIENT UNABLE TO FOCUS ON ENCOURAGEMENT AND IS PERSEVERATING ON FOOD/JUICE/AND DISCHARGE. PATIENT IS MEDICATION COMPLIANT. DENIES SI/HI AT THIS TIME. WILL CONTINUE TO MONITOR Q 15 MINUTES FOR SAFETY AND BEHAVIOR.
--- NOTE | 2022-11-13 06:26 | NUR ---
MORTUARY BEAUTICIAN NOTES: PATIENT AWAKE SITTING ON A CHAIR IN THE HALLWAY. A/O X4. CALM. BREATHING EVEN AND UNLABORED. NO ACUTE DISTRESS NOTED. NO C/O PAIN AT THIS TIME. MEDICATION COMPLIANT. COOPERATIVE. ALL NEEDS ANTICIPATED AND ATTENDED. WILL ENDORSE TO ONCOMING SHIFT FOR CONTINUITY OF CARE.
--- NOTE | 2022-11-13 08:06 | NUR ---
NEERAJ Discharge Note: Patient chooses to be discharged to the streets. SW gave pt option to [facility] located at [facility]: ([phone]) located at [facility]. [place] [address] and she refused. Patient will be given bus pass. Patients ex- Harjit ([phone]) of discharge. Patient appears to be alert and oriented x3. Patient denies visual/auditory hallucinations. Patient denies suicidal or homicidal ideation. NEERAJ had offered pt nursing facility options and assisted living options and pt refused. Patient will follow up with (Dental Equipment Technician) Dr. James located [facility] [place] [address]; ([phone]) walk-in Wednesday, Wednesday, , Wednesday between 9:45AM. Patient given resources for (Psychiatrist) located at [place] [id number]; ([phone]). Patient refused to sign the homeless waiver upon discharge and a copy was placed in the chart. Homeless resources were provided and include [address] information line for shelters and homeless resources. A copy of all resources given to patient was also placed in the chart.
[2022-11-13] MEDS: HALOPERIDOL 5 MG TABLET PO SCH (08:30)
[2022-11-13] MEDS: DIVALPROEX SODIUM 500 MG TABLET.DR PO SCH (08:30)
[2022-11-13] MEDS: BENZTROPINE MESYLATE (1 MG) 1 MG TABLET PO SCH (08:30)
--- NOTE | 2022-11-13 08:46 | NUR ---
Dr. Bentley gave an order to d/c hold and d/c today and to follow up with contract officer and given resources for psychiatrist. Filter Bed Placer offered nursing facility options and assisted living options and pt. refused.
--- NOTE | 2022-11-13 08:59 | NUR ---
RN-NOTES PATIENT HAD A DISCHARGE ORDER FROM DR. FREDERICK (PSYCHIATRIST) DR. GLOVER ( ENDBAND CUTTER HAND) MEDICALLY CLEARED PATIENT FOR DISCHARGE. PATIENT LEFT THE UNIT IN STABLE CONDITION A/O X3 ,AMBULATORY STEADY GAIT. PATIENT REFUSED VITAL SIGN AND SKIN ASSESSMENT PRIOR TO DISCHARGE. PATIENT ALSO REFUSED TO SIGN DISCHARGE PAPERS. PATIENT DID NOT VERBALIZE SI/HI,DENIES VISUAL/AUDITORY HALLUCINATIONS AT THE TIME SHE LEFT THE UNIT. RX AND TAP CARD WAS GIVEN TO THE PATIENT . PATIENT LEFT THE UNIT WITH ALL BELONGINGS AND WAS ASSISTED BY ACTIVITY STAFF TO THE LOBBY FOR SAFETY.
== END 2022-11-13 09:00 | disposition home or self-care (01) | DRG 885 ==
LOC: ER 23:42 → TRANSITION 11-04 04:28 → GPS 11-04 08:13
PROVIDERS: ADMIT Psychiatry & Neurology Psychiatry; ATTEND Student in an Organized Health Care Education/Training Program
DX: F25.0 Schizoaffective disorder, bipolar type (principal); R45.851 Suicidal ideations; N39.0 Urinary tract infection, site not specified; I10 Essential (primary) hypertension; F29 Unspecified psychosis not due to a substance or known physiological condition; Z87.81 Personal history of (healed) traumatic fracture; Z98.890 Other specified postprocedural states; Z79.899 Other long term (current) drug therapy; F32.A Depression, unspecified; Z78.9 Other specified health status; E78.5 Hyperlipidemia, unspecified
CPT/HCPCS: 36415; 80048-TC; 80076-TC; 80164-TC; 81001; 85025-TC; 87081-TC; 87086-TC; C9803; G0480; J1200; J1630; J2060; J3490

== ENCOUNTER 2025-01-06 00:08 | Inpatient (IN) | payer MEDICARE, OTHER ==
[~2025-01-06] VITALS: Ht 170.2 cm; Wt 102.1 kg
[2025-01-06] MEDS ORDERED: LORAZEPAM INJ 2 MG/ML VIAL ONE ×2 (00:32→01:22)
[2025-01-06] MEDS: LORAZEPAM INJ 2 MG/ML VIAL IM ONE ×2 (00:38→01:25)
[2025-01-06] MEDS ORDERED: diphenhydrAMINE HCL 50 MG/ML VIAL ONE (01:49)
[2025-01-06] MEDS: diphenhydrAMINE HCL 50 MG/ML VIAL IM ONE (01:55)
[2025-01-06] MEDS ORDERED: HALOPERIDOL LACTATE INJ 5 MG/ML VIAL ONE (07:54)
[2025-01-06] MEDS: HALOPERIDOL LACTATE INJ 5 MG/ML VIAL IM ONE (07:56)
[2025-01-06] MEDS ORDERED: OLAN10TA6 PO (08:49)
[2025-01-06] MEDS ORDERED: SERT50TA12 PO (08:49)
[2025-01-06] MEDS ORDERED: ARIP20TA20 PO (08:49)
[2025-01-06] MEDS ORDERED: BUSP10TA3 PO (08:49)
[2025-01-06] MEDS ORDERED: MAGNESIUM HYDROXIDE 30 ML UDC PO PRN (09:30)
[2025-01-06] MEDS ORDERED: TEMAZEPAM 7.5 MG CAPSULE PO PRN (09:30)
[2025-01-06] MEDS ORDERED: MAG HYDROX/AL HYDROX/SIMETH 30 ML UDC PO PRN (09:30)
[2025-01-06] MEDS: BLOOD SUGAR DIAGNOSTIC 1 EACH STRIP IN ONE (10:01)
[2025-01-06 10:21] VITALS: BP 179/91; TEMP 98.2; O2SAT 98
[2025-01-06] MEDS: DIVALPROEX SODIUM 250 MG TABLET.DR PO SCH (11:30)
[2025-01-06] MEDS: OLANZAPINE 2.5 MG TABLET PO SCH (13:57)
[2025-01-06] MEDS: CLONIDINE HCL 0.1 MG TABLET PO PRN (13:58)
[2025-01-06] MEDS: OLANZAPINE 10 MG TABLET PO SCH (21:38)
[2025-01-07 07:29] LABS: BILIRUBIN,TOTAL 0.3 mg/dL (0.2-1.0); CALCIUM, SERUM 8.9 mg/dL (8.5-10.1); CREATININE 0.7 mg/dL (0.6-1.3); POTASSIUM 3.6 mmol/L (3.5-5.1); TOTAL PROTEIN, SERUM 6.8 g/dL (6.4-8.2)
[2025-01-07 08:17] LABS: CHOLESTEROL 201 mg/dL (<200); HDL CHOLESTEROL 38 mg/dL (40-60); LDL 125 mg/dL (0-99); TRIGLYCERIDES 251 mg/dL (30-150)
[2025-01-07] MEDS: HALOPERIDOL LACTATE INJ 5 MG/ML VIAL IM STA (10:25)
[2025-01-07] MEDS: LORAZEPAM INJ 2 MG/ML VIAL IM STA (10:25)
[2025-01-07] MEDS: ATORVASTATIN 10 MG TABLET PO SCH (21:58)
[2025-01-09 08:00] VITALS: BP 152/105; TEMP 97.8; O2SAT 98
[2025-01-09] MEDS: LORAZEPAM 0.5 MG TABLET PO PRN (12:05)
[2025-01-09 16:00] VITALS: BP 132/113; TEMP 98.1; O2SAT 98
[2025-01-10 08:00] VITALS: TEMP 98.1; O2SAT 97
[2025-01-10] MEDS ORDERED: RISPERIDONE 0.25 MG TAB.RAPDIS PO SCH (13:30)
[2025-01-10] MEDS: OXCARBAZEPINE 150 MG TABLET PO SCH (13:30)
[2025-01-10] MEDS: risperiDONE-M 0.5 MG TAB.RAPDIS PO SCH (21:00)
[2025-01-11] MEDS: HALOPERIDOL LACTATE INJ 5 MG/ML VIAL IM ONE (10:32)
[2025-01-11] MEDS: LORAZEPAM INJ 2 MG/ML VIAL IM ONE (10:32)
[2025-01-11] MEDS: OXCARBAZEPINE 150 MG TABLET PO SCH (15:23)
[2025-01-11 22:00] VITALS: BP 129/74; TEMP 98; O2SAT 98
[2025-01-12] MEDS: ACETAMINOPHEN 325 MG TABLET PO PRN (06:52)
[2025-01-12] MEDS: RISPERIDONE 1 MG TAB.RAPDIS PO SCH (13:15)
[2025-01-13 16:00] VITALS: BP 163/87; TEMP 97.9; O2SAT 98
[2025-01-13] MEDS: CLONIDINE HCL 0.1 MG TABLET PO PRN (16:34)
[2025-01-15 08:00] VITALS: BP 187/107; TEMP 98.7; O2SAT 99
[2025-01-15 16:00] VITALS: BP 140/77; TEMP 98.7; O2SAT 97
[2025-01-15] MEDS: OXCARBAZEPINE 150 MG TABLET PO SCH (20:18)
[2025-01-15 20:34] VITALS: BP 132/96; TEMP 98.8; O2SAT 97
[2025-01-16 08:00] VITALS: BP 186/166; TEMP 97.8; O2SAT 98
[2025-01-16] MEDS: OLANZAPINE ZYDIS 5 MG TAB.RAPDIS SL PRN (09:59)
[2025-01-16] MEDS: OXCARBAZEPINE 150 MG TABLET PO ONE (11:16)
[2025-01-16 16:05] VITALS: BP 169/125; TEMP 98.2; O2SAT 99
[2025-01-16] MEDS: OXCARBAZEPINE 150 MG TABLET PO SCH (21:14)
[2025-01-17 08:00] VITALS: BP 190/107; TEMP 98; O2SAT 98
[2025-01-17] MEDS: OXCARBAZEPINE 150 MG TABLET PO SCH (09:00)
[2025-01-17 20:04] VITALS: BP 133/112; TEMP 98.3; O2SAT 98
[2025-01-18] MEDS: OXCARBAZEPINE 150 MG TABLET PO SCH (14:37)
[2025-01-18] MEDS: risperiDONE 1 MG TABLET PO SCH ×2 (16:28→21:51)
[2025-01-18 19:53] VITALS: BP 184/90; TEMP 97.9; O2SAT 96
[2025-01-18 21:27] VITALS: BP 135/75; TEMP 98; O2SAT 98
[2025-01-19 23:31] VITALS: BP 130/79; TEMP 98; O2SAT 98
[2025-01-20 08:00] VITALS: BP 217/99; TEMP 97.7; O2SAT 96
[2025-01-20] MEDS: AMLODIPINE BESYLATE 5 MG TABLET PO SCH (14:30)
[2025-01-20] MEDS: hydrALAZINE HCL 25 MG TABLET PO SCH (16:28)
[2025-01-21 08:00] VITALS: BP 178/105; TEMP 97.9; O2SAT 95
[2025-01-21] MEDS: AMLODIPINE BESYLATE 5 MG TABLET PO ONE (12:05)
[2025-01-21] MEDS: CLONIDINE HCL 0.1 MG TABLET PO ONE (12:06)
[2025-01-21] MEDS: hydrALAZINE HCL 25 MG TABLET PO SCH (12:11)
[2025-01-21 16:08] VITALS: BP 203/163; TEMP 98.7; O2SAT 98
[2025-01-21] MEDS ORDERED: CLONIDINE HCL 0.1 MG TABLET PO SCH (17:00)
[2025-01-21 18:00] VITALS: BP 160/95; TEMP 98.3; O2SAT 98
[2025-01-22 08:00] VITALS: BP 190/104; TEMP 97.8; O2SAT 99
[2025-01-22] MEDS: OLANZAPINE 10 MG VIAL IM PRN (08:15)
[2025-01-22] MEDS: CLONIDINE HCL 0.1 MG TABLET PO SCH (08:32)
[2025-01-22] MEDS: AMLODIPINE BESYLATE 5 MG TABLET PO SCH (08:32)
[2025-01-22] MEDS ORDERED: AMLO-212 PO (11:04)
[2025-01-22] MEDS ORDERED: LOSA25TA27 PO (11:04)
[2025-01-22] MEDS ORDERED: CLON0.1T PO (11:04)
[2025-01-22] MEDS ORDERED: HYDR-4076 PO (11:04)
[2025-01-22] MEDS ORDERED: ATOR10TA PO (11:04)
[2025-01-22] MEDS ORDERED: CLON-418 PO (11:04)
[2025-01-22 12:40] VITALS: BP 143/95
[2025-01-22] MEDS: LOSARTAN POTASSIUM 25 MG TABLET PO SCH (12:40)
[2025-01-22] MEDS: hydrALAZINE HCL 50 MG TABLET PO SCH (13:00)
[2025-01-22] MEDS ORDERED: CLONIDINE HCL 0.1 MG TABLET PO SCH ×2 (17:00)
== END 2025-01-22 13:45 | DRG 885 ==
LOC: ER 00:13 → MEDOV2 07:08 → GPS 09:03
PROVIDERS: ADMIT Psychiatry & Neurology Psychosomatic Medicine; ATTEND Nurse Practitioner Acute Care
PROC: 0HBRXZZ Excision of Toe Nail, External Approach (ICD-10-PCS; principal; 2025-01-19)
DX: F25.0 Schizoaffective disorder, bipolar type (principal); N18.9 Chronic kidney disease, unspecified; I12.9 Hypertensive chronic kidney disease with stage 1 through stage 4 chronic kidney disease, or unspecified chronic kidney disease; E11.22 Type 2 diabetes mellitus with diabetic chronic kidney disease; B35.1 Tinea unguium; E66.9 Obesity, unspecified; E78.5 Hyperlipidemia, unspecified; L60.3 Nail dystrophy; R62.7 Adult failure to thrive; Z68.35 Body mass index [BMI] 35.0-35.9, adult; M79.675 Pain in left toe(s); M79.674 Pain in right toe(s); F29 Unspecified psychosis not due to a substance or known physiological condition; Z73.6 Limitation of activities due to disability
CPT/HCPCS: 36415; 80053-TC; 80061-TC; 82962-TC; 87081-TC; 97110-TC; 97116-TC; J1200; J1630; J2060; J3490